=== PATIENT | female | born 1975 | race Caucasian/White ===

== ENCOUNTER 2021-02-01 14:40 | Emergency (ER) | payer SELFPAY ==
--- NOTE | 2021-02-01 15:29 | RAD REPORT ---
EXAM DESCRIPTION: CT - Head C Spine Cap Wo Con - 02/01/2021 3:08 pm CLINICAL HISTORY: Trauma, head and neck injury. Chest, abdomen and pelvis pain. PAIN COMPARISON: No comparisons TECHNIQUE: CT head without contrast. CT cervical spine without contrast with coronal and sagittal reformatted images. CT chest, abdomen and pelvis without contrast with coronal and sagittal reformatted images of the [facility] ne. All CT scans are performed using dose optimization technique as appropriate and may include automated exposure control or mA/KV adjustment according to patient size. FINDINGS: CT HEAD WITHOUT CONTRAST: No intracranial hemorrhage, hydrocephalus or extra-axial fluid collection. No areas of brain edema o r midline shift. Mild to moderate mucoperiosteal thickening of the left maxillary antrum. The paranasal sinuses and ma stoids otherwise clear. The calvarium is intact. Left frontal and left posterior scalp hematomas are seen. There is likely an inferior left orbital rim fracture. CT CERVICAL SPINE WITHOUT CONTRAST: No fracture or subluxation. Moderate mid and upper cervical degenerative changes. The prevertebral so ft tissues are normal in thickness. CT CHEST, ABDOMEN, PELVIS WITHOUT CONTRAST: NOTE: Lack of contrast is a significant limitation in the assessment of trauma related findings. Spec ifically, solid organ, vascular and bowel evaluation is significantly limited. The lungs are clear.No pneumothorax or pericardial/pleural fluid. No evidence of intra-abdominal visceral injury, free fluid or free air is seen within the above detai led limitations. Small air bubbles are present in the urinary bladder. No fractures. IMPRESSION: Scalp hematomas are noted without intracranial acute abnormality. Inferior left orbital rim fractures noted, favored to be old. Elsewhere, no acute abnormality discerned. Small air bubbles are present in the urinary bladder. This could indicate infection or recent instrum entation.
[2021-02-01 15:35] LABS: Absolute Lymphocytes (CBC) 3.1 K/uL (0.7-4.9); Basophils % 1.3 % (0-1.3); Hematocrit 42.1 % (36.0-45.0); Lymphocytes % 37.7 % (15.3-44.8); MPV 7.9 fL (7.6-11.3); RBC Red Blood Cell Count 4.09 M/uL (3.86-4.86)
[2021-02-01] MEDS ORDERED: MORPHINE 4 MG/ML SYR ONE ×2 (15:57→18:19)
[2021-02-01] MEDS ORDERED: ONDANSETRON 4 MG/2 ML VIAL ONE ×2 (15:57→18:19)
[2021-02-01 15:58] LABS: BUN Blood Urea Nitrogen 10 mg/dL (7-18); Bicarbonate 24 mmol/L (21-32); Glucose Level 100 mg/dL (74-106); Potassium 3.8 mmol/L (3.5-5.1); Sodium Level 144 mmol/L (136-145)
--- NOTE | 2021-02-01 17:15 | EDPHYS ---
Physician Documentation [facility] Name: Wendi Bonilla Age: 45 yrs Sex: Female : 1975 Arrival Date: 02/01/2021 Time: 14:44 Bed 25 Private MD: ED Physician Walter Boogie HPI: 02/02 16:41 This 45 yrs old Female presents to ER via EMS with complaints of Fall Injury. kdr 16:41 Details of fall: The patient fell from a height, 12 foot fall to concrete. Denies LOC. kdr Onset: The symptoms/episode began/occurred acutely, just prior to arrival. Associated injuries: The patient sustained injury to the head, abrasion, contusion, hematoma, pain, swelling, tenderness, right wrist, decreased range of motion, deformity, ecchymosis, left lateral ankle, decreased range of motion, ecchymosis, hematoma, painful injury, swelling. Severity of symptoms: At their worst the symptoms were moderate, severe, in the emergency department the symptoms are unchanged. The patient has not experienced similar symptoms in the past. The patient has not recently seen a physician. Historical: - Allergies: 02/01 16:00 No Known Allergies; hb - Immunization history:: Adult Immunizations up to date. - Social history:: Smoking status: Patient denies any tobacco usage or history of. - Immunization history: Last tetanus immunization: < 5 years ago. ROS: 02/02 16:41 Constitutional: Negative for fever, chills, and weight loss, Eyes: Negative for injury, kdr pain, redness, and discharge, ENT: Negative for injury, pain, and discharge, Neck: Negative for injury, pain, and swelling, Cardiovascular: Negative for chest pain, palpitations, and edema, Respiratory: Negative for shortness of breath, cough, wheezing, and pleuritic chest pain, Abdomen/GI: Negative for abdominal pain, nausea, vomiting, diarrhea, and constipation, Back: Negative for injury and pain, : Negative for injury, bleeding, discharge, and swelling, Skin: Negative for injury, rash, and discoloration, Psych: Negative for depression, anxiety, suicide ideation, homicidal ideation, and hallucinations, Allergy/Immunology: Negative for hives, rash, and allergies, Endocrine: Negative for neck swelling, polydipsia, polyuria, polyphagia, and marked weight changes, Hematologic/Lymphatic: Negative for swollen nodes, abnormal bleeding, and unusual bruising. MS/extremity: Positive for decreased range of motion, deformity, pain, swelling, tenderness, warmth, of the right wrist, left lateral ankle and lateral aspect of left foot. Exam: 16:41 Constitutional: This is a well developed, well nourished patient who is awake, alert, kdr and in no acute distress. 16:41 ENT: Nares patent. No nasal discharge, no septal abnormalities noted. Tympanic membranes are normal and external auditory canals are clear. Oropharynx with no redness, swelling, or masses, exudates, or evidence of obstruction, uvula midline. Mucous membranes moist. Neck: Trachea midline, no thyromegaly or masses palpated, and no cervical lymphadenopathy. Supple, full range of motion without nuchal rigidity, or vertebral point tenderness. No Meningismus. Chest/axilla: Normal chest wall appearance and motion. Nontender with no deformity. No lesions are appreciated. Cardiovascular: Regular rate and rhythm with a normal S1 and S2. No gallops, murmurs, or rubs. Normal PMI, no JVD. No pulse deficits. Respiratory: Lungs have equal breath sounds bilaterally, clear to auscultation and percussion. No rales, rhonchi or wheezes noted. No increased work of breathing, no retractions or nasal flaring. Abdomen/GI: Soft, non-tender, with normal bowel sounds. No distension or tympany. No guarding or rebound. No evidence of tenderness throughout. Back: No spinal tenderness. No costovertebral tenderness. Full range of motion. Skin: Warm, dry with normal turgor. Normal color with no rashes, no lesions, and no evidence of cellulitis. MS/ Extremity: Pulses equal, no cyanosis. Neurovascular intact. Full, normal range of motion. Neuro: Awake and alert, GCS 15, oriented to person, place, time, and situation. Cranial nerves II-XII grossly intact. Motor strength 5/5 in all extremities. Sensory grossly intact. Cerebellar exam normal. Normal gait. Psych: Awake, alert, with orientation to person, place and time. Behavior, mood, and affect are within normal limits. 16:41 Head/face: Noted is abrasion(s), hematoma, a laceration(s), that is superficial, 4 cm(s), of the forehead. Vital Signs: 02/01 14:50 BP 141 / 102; Pulse 93; Resp 18; Temp 98.2; Pulse Ox 94% on R/A; Pain 10/10; hb 15:15 BP 116 / 94; Pulse 93; Resp 16; Pulse Ox 96% ; Pain 10/10; kg 15:30 BP 133 / 88; Pulse 96; Resp 18; Pulse Ox 94% ; Pain 10/10; kg 16:45 BP 161 / 104; Pulse 89; Resp 17; Pulse Ox 99% on R/A; hb 17:45 BP 140 / 103; Pulse 89; Resp 15; Pulse Ox 99% on R/A; Pain 8/10; hb Ramo Coma Score: 14:50 Eye Response: spontaneous(4). Verbal Response: oriented(5). Motor Response: obeys hb commands(6). Total: 15. Trauma Score (Adult): 14:50 Eye Response: spontaneous(1); Verbal Response: oriented(1); Motor Response: obeys hb commands(2); Systolic BP: > 89 mm Hg(4); Respiratory Rate: 10 to 29 per min(4); Ramo Score: 15; Trauma Score: 12 15:45 Eye Response: spontaneous(1); Verbal Response: oriented(1); Motor Response: obeys hb commands(2); Systolic BP: > 89 mm Hg(4); Respiratory Rate: 10 to 29 per min(4); Ramo Score: 15; Trauma Score: 12 16:45 Eye Response: spontaneous(1); Verbal Response: oriented(1); Motor Response: obeys hb commands(2); Systolic BP: > 89 mm Hg(4); Respiratory Rate: 10 to 29 per min(4); [place] Score: 15; Trauma Score: 12 17:45 Eye Response: spontaneous(1); Verbal Response: oriented(1); Motor Response: obeys hb commands(2); Systolic BP: > 89 mm Hg(4); Respiratory Rate: 10 to 29 per min(4); Ramo Score: 15; Trauma Score: 12 MDM: 17:14 Patient medically screened. kdr 02/02 16:41 Data reviewed: vital signs, nurses notes, lab test result(s), radiologic studies. kdr Counseling: I had a detailed discussion with the patient and/or guardian regarding: the historical points, exam findings, and any diagnostic results supporting the discharge/admit diagnosis, lab results, radiology results, the need for outpatient follow up. 02/01 15:01 Order name: Basic Metabolic Panel; Complete Time: 16:11 kdr 02/01 15:01 Order name: CBC with Diff; Complete Time: 16:11 kdr 02/01 15:01 Order name: CT Traumagram (Head C Spine CAP wo con); Complete Time: 16:11 [facility] 02/01 15:01 Order name: ETOH Level; Complete Time: 16:11 [facility] 02/01 18:02 Order name: XRAY Ankle LEFT 3 view 8 02/01 15:01 Order name: Labs collected and sent; Complete Time: 15:28 kdr 02/01 18:02 Order name: XRAY Wrist RIGHT 3 view 8 02/01 15:31 Order name: Labs - recollect needed: recollect ty\T\screen, reband pt; Complete Time: bd 15:45 02/01 18:26 Order name: Parker wrap-joint 8 02/01 18:26 Order name: [place] Forearm Splint [facility] Administered Medications: 02/01 15:44 Drug: Zofran (Ondansetron) 4 mg Route: IVP; Site: left antecubital; kg 16:12 Follow up: Response: No adverse reaction; Marked relief of symptoms; Pain is decreased kg 15:45 Drug: morphine 4 mg Route: IVP; Site: left antecubital; kg 16:12 Follow up: Response: No adverse reaction; Pain is decreased kg 17:15 Drug: Lidocaine-Epinephrine -1%: (1:100,000) 20 ml Volume: 20 ml; Route: Infiltration; hb 17:15 Drug: Marcaine (bupivacaine) (0.25 %) 10 ml Route: Infiltration; hb 18:07 Drug: morphine 4 mg Route: IVP; Site: left antecubital; hb 18:08 Drug: Zofran (Ondansetron) 4 mg Route: IVP; Site: left antecubital; hb Disposition: 02/01/21 18:35 Discharged to Home. Impression: Laceration Forehead, Nondisplaced right distal radius fracture, Sprain of ankle. - Condition is Stable. - Discharge Instructions: Ankle Sprain, Facial Laceration, Wrist Fracture Treated With Immobilization. - Prescriptions for Ibuprofen 800 mg Oral Tablet - take 1 tablet by ORAL route every 12 hours As needed take with food; 20 tablet. Tylenol- Codeine #3 300-30 mg Oral Tablet - take 2 tablets by ORAL route every 4-6 hours As needed; 20 tablet. - Medication Reconciliation Form, Thank You Letter, Antibiotic Education, Prescription Opioid Use form. - Follow up: Travis Aguero MD; When: 5 - 6 days; Reason: Wound Recheck, Recheck today's complaints, Continuance of care, Staple/Suture removal, Re-evaluation by your physician. Follow up: Clark Tillman MD; When: 5 - 6 days; Reason: Recheck today's complaints, Continuance of care, Re-evaluation by your physician. - Problem is new. - Symptoms have improved. Signatures: Dispatcher [employer] [facility] Uzma Nayak Kevin, MD MD [facility] Alex Son PA PA [id number] More Ramey RN RN Florence Rizo kg Corrections: (The following items were deleted from the chart) 15:51 15:02 TYPE AND SCREEN+BB.LAB.BRZ ordered. [facility] 18:08 17:14 02/01/2021 17:14 Discharged to Home. Impression: Weakness; Rectal Bleeding s/p kdr hemorrhoidectomy. Condition is Stable. Forms are Medication Reconciliation Form, Thank You Letter, Antibiotic Education, Prescription Opioid Use. Follow up: Private Physician; When: 2 - 3 days; Reason: If symptoms return, Further diagnostic work-up, Recheck today's complaints, Continuance of care, Re-evaluation by your physician. Problem is an ongoing problem. Symptoms have improved. kdr 19:00 18:35 02/01/2021 18:35 Discharged to Home. Impression: Laceration Forehead; hb Nondisplaced right distal radius fracture; Sprain of ankle. Condition is Stable. Prescriptions for Ativan 0.5 mg Oral Tablet - take 1 tablet by ORAL route every 8 hours As needed for sleep If 50 mg of benadryl does not get you to sleep then use this medication only once per night.; 6 tablet, Benadryl 25 mg Oral Capsule - take 2 capsule by ORAL route At bedtime As needed; 16 tablet. and Forms are Medication Reconciliation Form, Thank You Letter, Antibiotic Education, Prescription Opioid Use. Follow up: Travis Aguero; When: 5 - 6 days; Reason: Wound Recheck, Recheck today's complaints, Continuance of care, Staple/Suture removal, Re-evaluation by your physician. Follow up: Clark Tillman; When: 5 - 6 days; Reason: Recheck today's complaints, Continuance of care, Re-evaluation by your physician. Problem is new. Symptoms have improved. jr8
--- NOTE | 2021-02-01 17:15 | ER ---
Nurse's Notes [facility] Name: Wendi Bonilla Age: 45 yrs Sex: Female : 1975 Arrival Date: 02/01/2021 Time: 14:44 Bed 25 Private MD: Diagnosis: Laceration Forehead;Nondisplaced right distal radius fracture;Sprain of ankle Presentation: 02/01 14:49 Chief complaint: EMS states: Fell backwards off 12 foot deck and landed on concrete. hb Laceration to forehead, c/o right wrist and low back pain. Negative LOC. Care prior to arrival: Bleeding of injury controlled. Injury cleansed. Cervical collar in place. Placed on backboard. Mechanism of Injury: Fall 12 feet. 14:49 Acuity: THERON 2 hb 14:49 Method Of Arrival: EMS: [facility] 14:49 Trauma event details: Injury occurred in the [facility], Injury occurred: at home. Injury occurred: February 01, 2021. 15:02 Coronavirus screen: At this time, the client does not indicate any symptoms associated hb with coronavirus-19. Ebola Screen: No symptoms or risks identified at this time. Initial Sepsis Screen: Does the patient meet any 2 criteria? No. Patient's initial sepsis screen is negative. Does the patient have a suspected source of infection? No. Patient's initial sepsis screen is negative. Risk Assessment: Do you want to hurt yourself or someone else? Patient reports no desire to harm self or others. Onset of symptoms was February 01, 2021. Trauma Activation: Alert Physician: ED Physician; Name: Dr. Boogie; Notified At: 14:49; Arrived At: 14:49 Physician: General Surgeon; Name: ; Notified At: 14:49; Arrived At: Physician: Radiology; Name: ; Notified At: 14:49; Arrived At: Physician: Respiratory; Name: ; Notified At: 14:49; Arrived At: Physician: Lab; Name: ; Notified At: 14:49; Arrived At: Historical: - Allergies: 16:00 No Known Allergies; hb - Immunization history:: Adult Immunizations up to date. - Social history:: Smoking status: Patient denies any tobacco usage or history of. - Immunization history: Last tetanus immunization: < 5 years ago. Screenin:50 Abuse screen: Denies threats or abuse. Denies injuries from another. Tuberculosis hb screening: No symptoms or risk factors identified. 15:00 Nutritional screening: No deficits noted. Fall Risk Total [place] Fall Scale indicates hb Low Risk Score (25-44 pts). Fall prevention measures have been instituted. Side Rails Up X 2 Frequent Obs/Assesments occuring Family Present and informed to notify staff if they need to leave bedside As available Patient and Family Educated on Fall Prevention Program and strategies. Primary Survey: 14:50 NO uncontrolled hemorrhage observed. A: Airway: patent, No supplemental oxygen in use hb on arrival. Breathing/Chest: Respiratory pattern: regular, Respiratory effort: spontaneous, unlabored, Breath sounds: clear, Chest inspection: symmetrical rise and fall of the chest. Circulation: Pulses: palpable . Skin color: pink, Skin temperature: warm, dry. Disability Alert. Exposure/Environment: There is no evidence of uncontrolled external bleeding. Obvious injury(ies) are noted at this time: laceration to forehead, dressing in place. 15:45 Reassessment Airway Oxygen No O2 Breathing/Chest Respiratory pattern Regular hb Respiratory effort Spontaneous Unlabored Chest inspection Symmetrical Circulation Color [place] Temperature Warm Dry Disability Alert. 16:45 Reassessment Airway Oxygen No O2 Breathing/Chest Respiratory pattern Regular hb Respiratory effort Spontaneous Unlabored Chest inspection Symmetrical Circulation Color [place] Temperature Warm Dry Disability Alert. 17:45 Reassessment Airway Oxygen No O2 Breathing/Chest Respiratory pattern Regular hb Respiratory effort Spontaneous Unlabored Circulation Color [place] Temperature Warm Dry Disability Alert. Secondary Survey: 14:50 HEENT: Head Other laceration to forehead, bleeding controlled, dressing replaced with hb 4x4s and Kerlix. Gastrointestinal: No deficits noted. : No deficits noted. No signs and/or symptoms were reported regarding the genitourinary system. Musculoskeletal: Reports left low back pain, right wrist pain. Assessment: 14:55 Reassessment: Pt to CT via stretcher, remains on backboard per Dr. Boogie. hb 15:20 General: Appears in no apparent distress. uncomfortable, Behavior is calm, cooperative. hb Pain: Pain currently is 10 out of 10 on a pain scale. Neuro: Level of Consciousness is awake, alert, obeys commands, Oriented to person, place, time, situation. Cardiovascular: Capillary refill < 3 seconds Patient's skin is warm and dry. Rhythm is regular. Respiratory: Airway is patent Respiratory effort is even, unlabored, Respiratory pattern is regular, symmetrical. GI: No deficits noted. No signs and/or symptoms were reported involving the gastrointestinal system. : No deficits noted. No signs and/or symptoms were reported regarding the genitourinary system. EENT: No deficits noted. No signs and/or symptoms were reported regarding the EENT system. Derm: Skin is pink, warm \T\ dry. Musculoskeletal: Reports left low back pain, right wrist pain. Injury Description: forehead laceration, dressing in place. 15:45 Reassessment: Patient appears in no apparent distress at this time. Patient and/or hb family updated on plan of care and expected duration. Pain level reassessed. Patient is alert, oriented x 3, equal unlabored respirations, skin warm/dry/pink. 16:45 Reassessment: Patient appears in no apparent distress at this time. Patient and/or hb family updated on plan of care and expected duration. Pain level reassessed. Patient is alert, oriented x 3, equal unlabored respirations, skin warm/dry/pink. 17:14 Reassessment: Dr. Boogie at bedside for laceration repair. 17:45 Reassessment: Patient appears in no apparent distress at this time. Patient and/or hb family updated on plan of care and expected duration. Pain level reassessed. Patient is alert, oriented x 3, equal unlabored respirations, skin warm/dry/pink. Vital Signs: 14:50 BP 141 / 102; Pulse 93; Resp 18; Temp 98.2; Pulse Ox 94% on R/A; Pain 10/10; hb 15:15 BP 116 / 94; Pulse 93; Resp 16; Pulse Ox 96% ; Pain 10/10; kg 15:30 BP 133 / 88; Pulse 96; Resp 18; Pulse Ox 94% ; Pain 10/10; kg 16:45 BP 161 / 104; Pulse 89; Resp 17; Pulse Ox 99% on R/A; hb 17:45 BP 140 / 103; Pulse 89; Resp 15; Pulse Ox 99% on R/A; Pain 8/10; hb [place] Coma Score: 14:50 Eye Response: spontaneous(4). Verbal Response: oriented(5). Motor Response: obeys hb commands(6). Total: 15. Trauma Score (Adult): 14:50 Eye Response: spontaneous(1); Verbal Response: oriented(1); Motor Response: obeys hb commands(2); Systolic BP: > 89 mm Hg(4); Respiratory Rate: 10 to 29 per min(4); [place] Score: 15; Trauma Score: 12 15:45 Eye Response: spontaneous(1); Verbal Response: oriented(1); Motor Response: obeys hb commands(2); Systolic BP: > 89 mm Hg(4); Respiratory Rate: 10 to 29 per min(4); Ramo Score: 15; Trauma Score: 12 16:45 Eye Response: spontaneous(1); Verbal Response: oriented(1); Motor Response: obeys hb commands(2); Systolic BP: > 89 mm Hg(4); Respiratory Rate: 10 to 29 per min(4); Ramo Score: 15; Trauma Score: 12 17:45 Eye Response: spontaneous(1); Verbal Response: oriented(1); Motor Response: obeys hb commands(2); Systolic BP: > 89 mm Hg(4); Respiratory Rate: 10 to 29 per min(4); [place] Score: 15; Trauma Score: 12 ED Course: 14:44 Patient arrived in ED. kg 14:50 Patient has correct armband on for positive identification. Bed in low position. Call hb light in reach. Side rails up X2. 14:50 Patient maintains SpO2 saturation greater than 95% on room air. Thermoregulation: warm hb blanket given to patient. 14:55 More Ramey, RN is Primary Nurse. hb 14:58 Triage completed. hb 15:00 Walter Boogie MD is Attending Physician. kdr 15:00 Arm band placed on. hb 15:08 CT Traumagram (Head C Spine CAP wo con) In Process Unspecified. EDMS 15:20 Inserted saline lock: 20 gauge in left antecubital area, using aseptic technique. kg 15:27 ETOH Level Sent. kg 15:28 Basic Metabolic Panel Sent. kg 15:28 CBC with Diff Sent. kg 18:25 XRAY Ankle LEFT 3 view In Process Unspecified. EDMS 18:25 XRAY Wrist RIGHT 3 view In Process Unspecified. EDMS 18:33 Travis Aguero MD is Referral Physician. jr8 18:33 Clark Tillman MD is Referral Physician. jr8 18:58 No provider procedures requiring assistance completed. IV discontinued, intact, hb bleeding controlled, No redness/swelling at site. Administered Medications: 15:44 Drug: Zofran (Ondansetron) 4 mg Route: IVP; Site: left antecubital; kg 16:12 Follow up: Response: No adverse reaction; Marked relief of symptoms; Pain is decreased kg 15:45 Drug: morphine 4 mg Route: IVP; Site: left antecubital; kg 16:12 Follow up: Response: No adverse reaction; Pain is decreased kg 17:15 Drug: Lidocaine-Epinephrine -1%: (1:100,000) 20 ml Volume: 20 ml; Route: Infiltration; hb 17:15 Drug: Marcaine (bupivacaine) (0.25 %) 10 ml Route: Infiltration; hb 18:07 Drug: morphine 4 mg Route: IVP; Site: left antecubital; hb 18:08 Drug: Zofran (Ondansetron) 4 mg Route: IVP; Site: left antecubital; hb Intake: 14:50 PO: 0ml; Total: 0ml. hb Outcome: 18:35 Discharge ordered by . jr8 18:58 Discharged to home via wheelchair, with family. hb 18:58 Condition: stable 18:58 Discharge instructions given to patient, family, Instructed on discharge instructions, follow up and referral plans. medication usage, wound care, Demonstrated understanding of instructions, follow-up care, medications, wound care, splint care, Prescriptions given X 2. 18:59 Patient's length of stay in the Emergency Department was greater than 2 hours. awaiting hb laceration repair, radiology results, and dispoPatient's length of stay extended due to 19:00 Patient left the ED. hb Signatures: Dispatcher [employer] EDMS Walter Boogie MD MD [facility] Alex Son PA PA jr8 More Ramey RN RN Florence Rizo kg Corrections: (The following items were deleted from the chart) 15:51 15:28 TYPE AND SCREEN+BB.LAB.BRZ drawn and sent. kg EDMS 18:16 17:14 Discharge ordered by . kdr ss
[2021-02-01] MEDS ORDERED: BUPIVACAINE 0.5% PF 10 ML VIAL ONE (17:17)
[2021-02-01] MEDS ORDERED: LIDOCAINE 1% W/EPI 1:100,000 MDV 20 ML VIAL ONE (17:18)
--- NOTE | 2021-02-01 18:36 | RAD REPORT ---
EXAM DESCRIPTION: RAD - Wrist Right 3 View - 02/01/2021 6:25 pm CLINICAL HISTORY: PAIN Pain COMPARISON: <Comparisons> FINDINGS: Nondisplaced linear fracture of the distal metaphysis radius seen. Moderate soft tissue s welling is seen. The lateral projection is oblique in somewhat inadequate for evaluation of the carp al alignment.
--- NOTE | 2021-02-01 18:37 | RAD REPORT ---
EXAM DESCRIPTION: RAD - Ankle Left 3 View - 02/01/2021 6:25 pm CLINICAL HISTORY: PAIN COMPARISON: No comparisons FINDINGS: Significant soft tissue swelling is seen adjacent to the lateral malleolus. Minimal medial malleolar avulsion fracture suspected. Small calcaneal spurs.
[2021-02-01 19:46] VITALS: TEMP 98.2
[2021-02-01 19:51] VITALS: O2SAT 99
[2021-02-01 19:53] VITALS: BP 140/103
== END 2021-02-01 19:00 | disposition home or self-care (01) ==
LOC: ER 14:40
PROC: 0JQ10ZZ Repair Face Subcutaneous Tissue and Fascia, Open Approach (ICD-10-PCS; principal; 2021-02-01)
PROC: 2W3CX1Z Immobilization of Right Lower Arm using Splint (ICD-10-PCS; 2021-02-01)
DX: S01.81XA Laceration without foreign body of other part of head, initial encounter (principal); S52.501A Unspecified fracture of the lower end of right radius, initial encounter for closed fracture; S93.401A Sprain of unspecified ligament of right ankle, initial encounter; W17.89XA Other fall from one level to another, initial encounter; Y92.008 Other place in unspecified non-institutional (private) residence as the place of occurrence of the external cause
CPT/HCPCS: 36415; 70450; 71250; 72125; 80048; 80320; 85025; 96374; 96375; 99284; G0390; J2405

== ENCOUNTER 2021-02-23 09:46 | Day surgery (SDC) | payer OTHER ==
--- NOTE | 2021-02-22 10:10 | RAD REPORT ---
EXAM DESCRIPTION: RAD - Chest Pa And Lat (2 Views) - 02/22/2021 9:55 am CLINICAL HISTORY: preop COMPARISON: None TECHNIQUE: Frontal and lateral views of the chest were obtained. FINDINGS: The lungs are hyperexpanded with fibrotic lung change present. No failure, infiltrate or m ass lesion identifiable. Bilateral nipple shadows overlie the lower chest. Heart size is normal and central vasculature is within normal limits. No pleural effusion or pneumothorax seen. No acute wolf [place] finding noted. No aortic abnormality. IMPRESSION: Hyperexpanded lung doyle and prominent interstitial pattern support COPD diagnosis. Thi s can be correlated with clinical findings. No acute cardiopulmonary finding seen.
[2021-02-22 10:25] LABS: Urine Appearance CLEAR (Clear); Urine Bilirubin NEGATIVE (Negataive); Urine Blood NEGATIVE (Negative); Urine Color YELLOW (Yellow); Urine Glucose NEGATIVE (Negative); Urine Protein NEGATIVE (Negative); Urine Urobilinogen 0.2 mg/dL (0.2-1.0); Urine pH 5.5 (5.0-7.0)
[2021-02-22 10:35] LABS: Urine Microscopic Reflex NO UMIC
[2021-02-22 10:44] LABS: Absolute Lymphocytes (CBC) 3.3 K/uL (0.7-4.9); Basophils % 2.4 % (0-1.3); Hematocrit 39.4 % (36.0-45.0); Lymphocytes % 39.6 % (15.3-44.8); MPV 7.4 fL (7.6-11.3); RBC Red Blood Cell Count 3.95 M/uL (3.86-4.86)
[2021-02-23] MEDS ORDERED: Ringers Lactate 1,000 ML IV ONE (10:20)
[2021-02-23] MEDS ORDERED: BSS OPTHALMIC SOL 15 ML BOT OPTH ONE (12:13)
[2021-02-23] MEDS: CEFAZOLIN/SWI 1gm 1 GM/10 ML SYR ONE ×2 (12:16→12:35)
[2021-02-23] MEDS ORDERED: MIDAZOLAM HCL 2 MG/2 ML INJ ONE (12:34)
[2021-02-23] MEDS ORDERED: LIDOCAINE 1% W/EPI 1:100,000 MDV 20 ML VIAL ONE (12:41)
[2021-02-23] MEDS ORDERED: LIDOCAINE 1% MPF 5 ML VIAL ONE (12:44)
[2021-02-23] MEDS ORDERED: FENTANYL CITR 100 MCG/2 ML ONE (12:44)
[2021-02-23] MEDS ORDERED: propofoL 200 MG/20 ML VIAL IV ONE (12:44)
[2021-02-23] MEDS ORDERED: dexAMETHasone 10 MG/ML VIAL ONE (12:59)
[2021-02-23] MEDS ORDERED: KETOROLAC 30 MG/ML INJ ONE (13:04)
[2021-02-23] MEDS ORDERED: ONDANSETRON 4 MG/2 ML VIAL ONE (13:04)
[2021-02-23] MEDS ORDERED: Mastisol Adhesive Liq ONE (13:04)
[2021-02-23 13:57] VITALS: TEMP 97.6
[2021-02-23] MEDS ORDERED: CODEINE 30MG/APAP 300MG TAB ONE (14:51)
[2021-02-23 15:19] VITALS: BP 118/76; O2SAT 97
--- NOTE | 2021-02-23 20:58 | OP ---
Surgeon: Travis Aguero MD Preoperative Diagnosis: Open wound of the forehead. Postoperative Diagnosis: Open wound of the forehead. Procedure Performed: Excision of skin and subcutaneous tissue, layered closure, 3 cm. Anesthesia: General. Procedure In Detail: After satisfactory induction of general anesthesia, 1% lidocaine with epinephri ne was used to infiltrate the forehead. The patient was then prepped with Betadine scrub and paint. Dry sterile drapes were applied in the usual manner. A transverse ellipse was outlined excising the open wound and electrocautery was used for hemostasis. Flaps were undermined and advanced, closed w ith 4-0 PDS on deep dermis and 4-0 Prolene horizontal mattress on the skin. Tincture of benzoin, Wilian ri-Strips. The patient tolerated procedure well and returned to Recovery. TADEO/SVETA Voice ID: [id number] Report ID: [id number]
== END 2021-02-23 15:10 | disposition home or self-care (01) ==
LOC: OR 09:46
PROVIDERS: ATTEND Specialist
PROC: 0HX1XZZ Transfer Face Skin, External Approach (ICD-10-PCS; principal; 2021-02-23 12:00)
DX: S01.80XD Unspecified open wound of other part of head, subsequent encounter (principal); Z20.822 Contact with and (suspected) exposure to COVID-19
CPT/HCPCS: 93005; 85025; 36415; 81003; 71046; 14040; U0003; J2704; J2250; J3010; J1100; J0690; J7120; J2405

== ENCOUNTER 2022-01-23 12:43 | Emergency (ER) | payer OTHER ==
--- OUTSIDE RECORDS SUMMARY | 2022-01-23 12:46 | XMS REPORT | Continuity of Care Document ---
:1975 Author Organization [facility] t Address [address] [place] [address] [address] [place] [address] Care Team Providers Name Role Phone Pcp, Does Not Have A Primary Care Physician Pavel Bee MD Attending Clinician Walt Webster Attending Clinician Walt REDDY Attending Clinician Unavailable Pavel BEE Attending Clinician Unavailable Problems Condition Condition Condition Status Onset Resolution Last Treating Co mments Source Name Details Category Date Date Treatment Clinician Date No known No known Disease Unive rs active active ity of problems problems [facility] Allergies, Adverse Reactions, Alerts Allergy Allergy Status Severity Reaction(s) Onset Inactive Treating Comm ents Source Name Type Date Date Clinician Sulfa Propensi Active Unknown - Onset as Uni vers Dyne ty to See comments 02-08 a child - i ty of adverse 00:00: unknown [place] reaction 00 reaction Medica l s Branch SULFA DRUG Active Unknown-Cmnt Univ ers DYNE 05 ity of 00:00: [address] NO KNOWN Drug Active Univers ALLERGIE Class ity of S [facility] Social History Social Habit Start Date Stop Date Quantity Comments Source Exposure to Not sure University of SARS-CoV-2 [facility] (event) [place] Tobacco use and 2021-02-08 2021-02-08 Never used Universit y of exposure 00:00:00 00:00:00 [facility] Alcohol intake 2021-02-08 2021-02-08 Current drinker Unive rsity of 00:00:00 00:00:00 of alcohol [facility] (finding) Branch Sex [birth year] Universit y of 00:00:00 00:00:00 [facility] Branch Smoking Status Start Date Stop Date Source Never smoker [facility] Branch Medications Ordered Filled Start Stop Current Ordering Indication Dosage Frequency Signature Comments Components Source Medication Medication Date Date Medication? Clinician (SIG) Name Name traMADoL 50 2020- No acute pain 50mg Take 1 Univers mg tablet - 05-13 tablet by ity of 00:00: 04:59 mouth [place] 00 :00 every 6 Medical (six) Branch hours as needed for Pain (scale 4-6) for up to 7 days. Indication s: acute pain traMADoL 50 2020-2020- No 4647 50mg Take 1 Uni vers mg tablet 5- 05-13 tablet by ity of 00:00: 04:59 mouth [place] 00 :00 every 6 Medical (six) Branch hours as needed for Pain (scale 4-6) for up to 7 days. Indication s: acute pain docusate 2020- No [id number] 100mg Take 1 U nivers (COLACE) 5- 05-13 capsule by ity of 100 mg 00:00: 04:59 mouth [place] capsule 00 :00 daily for Medical 7 days. Branch docusate 2020- No Pain 100mg Take 1 Unive rs (COLACE) 5-05 05-13 capsule by ity of 100 mg 00:00: 04:59 mouth [place] capsule 00 :00 daily for Medical 7 days. Branch traMADoL 50 2020- No acute pain 50mg Take 1 Univers mg tablet 5- 05-13 tablet by ity of 00:00: 04:59 mouth [place] 00 :00 every 6 Medical (six) Branch hours as needed for Pain (scale 4-6) for up to 7 days. Indication s: acute pain docusate 2020- No Pain 100mg Take 1 Unive rs (COLACE) 5-05 05-13 capsule by ity of 100 mg 00:00: 04:59 mouth [place] capsule 00 :00 daily for Medical 7 days. Branch traMADoL 50 2020- No 4647 50mg Take 1 Uni vers mg tablet 5- 05-13 tablet by ity of 00:00: 04:59 mouth [place] 00 :00 every 6 Medical (six) Branch hours as needed for Pain (scale 4-6) for up to 7 days. Indication s: acute pain docusate 2020-0 2020- No [id number] 100mg Take 1 U nivers (COLACE) 02-08 capsule by ity of 100 mg 00:00: 04:59 mouth [place] capsule 00 :00 daily for Medical 7 days. Branch traMADoL 50 2020-0 2020- No 4647 50mg Take 1 Uni vers mg tablet 02-08 tablet by ity of 00:00: 04:59 mouth [place] 00 :00 every 6 Medical (six) Branch hours as needed for Pain (scale 4-6) for up to 7 days. Indication s: acute pain docusate 2020-0 2020- No [id number] 100mg Take 1 U nivers (COLACE) 02-08 capsule by ity of 100 mg 00:00: 04:59 mouth [place] capsule 00 :00 daily for Medical 7 days. Branch acetaminoph 2020-0 Yes TAKE 2 Univ ers en-codeine 4-28 TABLETS BY ity of 300-30 mg 00:00: MOUTH [place] tablet 00 EVERY 4 - Medical 6 HOURS Branch NEEDED FOR PAIN ibuprofen 2020-0 Yes TAKE 1 Univer s 800 mg 4-28 TABLET BY ity of tablet 00:00: MOUTH [place] 00 EVERY 12 Medical HOURS Branch NEEDED FOR PAIN acetaminoph 2020-0 Yes TAKE 2 Univ ers en-codeine 4-28 TABLETS BY ity of 300-30 mg 00:00: MOUTH [place] tablet 00 EVERY 4 - Medical 6 HOURS Branch NEEDED FOR PAIN ibuprofen 2020-0 Yes TAKE 1 Univer s 800 mg 4-28 TABLET BY ity of tablet 00:00: MOUTH [place] 00 EVERY 12 Medical HOURS Branch NEEDED FOR PAIN acetaminoph 2020-0 Yes TAKE 2 Univ ers en-codeine 4-28 TABLETS BY ity of 300-30 mg 00:00: MOUTH [place] tablet 00 EVERY 4 - Medical 6 HOURS Branch NEEDED FOR PAIN ibuprofen 2020-0 Yes TAKE 1 Univer s 800 mg 4-28 TABLET BY ity of tablet 00:00: MOUTH [place] 00 EVERY 12 Medical HOURS Branch NEEDED FOR PAIN acetaminoph 2020-0 Yes TAKE 2 Univ ers en-codeine 4-28 TABLETS BY ity of 300-30 mg 00:00: MOUTH [place] tablet 00 EVERY 4 - Medical 6 HOURS Branch NEEDED FOR PAIN ibuprofen 2020-0 Yes TAKE 1 Univer s 800 mg 4-28 TABLET BY ity of tablet 00:00: MOUTH [place] 00 EVERY 12 Medical HOURS Branch NEEDED FOR PAIN acetaminoph 2020-0 Yes TAKE 2 Univ ers en-codeine 4-28 TABLETS BY ity of 300-30 mg 00:00: MOUTH [place] tablet 00 EVERY 4 - Medical 6 HOURS Branch NEEDED FOR PAIN ibuprofen 2020-0 Yes TAKE 1 Univer s 800 mg 4-28 TABLET BY ity of tablet 00:00: MOUTH [place] 00 EVERY 12 Medical HOURS Branch NEEDED FOR PAIN acetaminoph 2020-0 Yes TAKE 2 Univ ers en-codeine 4-28 TABLETS BY ity of 300-30 mg 00:00: MOUTH [place] tablet 00 EVERY 4 - Medical 6 HOURS Branch NEEDED FOR PAIN ibuprofen 2020-0 Yes TAKE 1 Univer s 800 mg 4-28 TABLET BY ity of tablet 00:00: MOUTH [place] 00 EVERY 12 Medical HOURS Branch NEEDED FOR PAIN acetaminoph 2020-0 Yes TAKE 2 Univ ers en-codeine 4-28 TABLETS BY ity of 300-30 mg 00:00: MOUTH [place] tablet 00 EVERY 4 - Medical 6 HOURS Branch NEEDED FOR PAIN ibuprofen 2020-0 Yes TAKE 1 Univer s 800 mg 4-28 TABLET BY ity of tablet 00:00: MOUTH [place] 00 EVERY 12 Medical HOURS Branch NEEDED FOR PAIN acetaminoph 2020-0 Yes TAKE 2 Univ ers en-codeine 4-28 TABLETS BY ity of 300-30 mg 00:00: MOUTH [place] tablet 00 EVERY 4 - Medical 6 HOURS Branch NEEDED FOR PAIN ibuprofen 2020-0 Yes TAKE 1 Univer s 800 mg 4-28 TABLET BY ity of tablet 00:00: MOUTH [place] 00 EVERY 12 Medical HOURS Branch NEEDED FOR PAIN Vital Signs Vital Name Observation Time Observation Value Comments Source Systolic blood 2021-03-16 15:28:00 139 mm[Hg] Univer sity [facility] pressure Medical Branch Diastolic blood 2021-03-16 15:28:00 84 mm[Hg] Unive rsity [facility] pressure Medical Branch Heart rate 2021-03-16 15:28:00 87 /min [facility] [place] Body weight 2021-03-16 15:28:00 52.164 kg [facility] [place] [facility] BMI 2021-03-16 15:28:00 16.98 kg/m2 [facility] [place] [facility] Systolic blood 2021-02-08 18:14:00 106 mm[Hg] [facility] [place] pressure Medical Branch Diastolic blood 2021-02-08 18:14:00 71 mm[Hg] [facility] [place] pressure Medical Branch Heart rate 2021-02-08 18:14:00 87 /min [facility] [place] [facility] Body height 2021-02-08 18:14:00 175.3 cm [facility] [place] [facility] Body weight 2021-02-08 18:14:00 52.164 kg [facility] [place] [facility] BMI 2021-02-08 18:14:00 16.98 kg/m2 Universi ty of [facility] Branch Systolic blood 2021-02-08 18:14:00 106 mm[Hg] [facility] [place] pressure Medical Branch Diastolic blood 2021-02-08 18:14:00 71 mm[Hg] [facility] [place] pressure Medical Branch Heart rate 2021-02-08 18:14:00 87 /min [facility] [place] [facility] Body height 2021-02-08 18:14:00 175.3 cm [facility] [place] [facility] Body weight 2021-02-08 18:14:00 52.164 kg [facility] [place] [facility] BMI 2021-02-08 18:14:00 16.98 kg/m2 Universi ty of [facility] Branch Systolic blood 2021-02-08 18:14:00 106 mm[Hg] [facility] [place] pressure Medical Branch Diastolic blood 2021-02-08 18:14:00 71 mm[Hg] [facility] [place] pressure Medical Branch Heart rate 2021-02-08 18:14:00 87 /min [facility] [place] [facility] Body height 2021-02-08 18:14:00 175.3 cm [facility] [place] [facility] Body weight 2021-02-08 18:14:00 52.164 kg [facility] [place] [facility] BMI 2021-02-08 18:14:00 16.98 kg/m2 [facility] [place] [facility] Systolic blood 2021-02-08 18:14:00 106 mm[Hg] [facility] Diastolic blood 2021-02-08 18:14:00 71 mm[Hg] [facility] [place] Heart rate 2021-02-08 18:14:00 87 /min [facility] Body height 2021-02-08 18:14:00 175.3 cm [facility] Body weight 2021-02-08 18:14:00 52.164 kg [facility] BMI 2021-02-08 18:14:00 16.98 kg/m2 [facility] Procedures Procedure Date / Time Performed Performing Clinician Sourc e XR WRIST <3 VW RIGHT 2021-03-16 15:23:06 Clark Bee [facility] Plan of Care Planned Activity Planned Date Details Comments Source Future Scheduled 2023 Screening for University [facility] Test 00:00:00 malignant neoplasm Medical B ranch of colon (procedure) [code = 486399868] Future Scheduled 2023 Screening for University [facility] Test 00:00:00 malignant neoplasm Medical B ranch of colon (procedure) [code = 956096166] Future Scheduled 2021-06-07 [facility] ([facility] Ended) [code Medical Branch = INFLUENZA VACCINE (Season Ended)] Future Scheduled 2021-06-07 INFLUENZA VACCINE Univer sity [facility] Test 00:00:00 (Season Ended) [code Medical Branch = INFLUENZA VACCINE (Season Ended)] Future Scheduled 2013 Scre[facility] for [facility] [place] Test 00:00:00 malignant neoplasm Medical B ranch of breast (procedure) [code = 578407178] Future Scheduled 2013 Screening for [facility] [place] Test 00:00:00 malignant neoplasm Medical B ranch of breast (procedure) [code = 305579909] Future Scheduled 1994 Screening for [facility] [place] Test 00:00:00 malignant neoplasm Medical B ranch of cervix (procedure) [code = 766210167] Future Scheduled 1994 Screening for University [place] Test 00:00:00 malignant neoplasm Medical B ranch of cervix (procedure) [code = 808704804] Future Scheduled 1992 DTaP,Tdap,and Td [facility] [place] Test 00:00:00 Vaccines (1 - Tdap) Medical Branch [code = DTaP,Tdap,and Td Vaccines (1 - Tdap)] Future Scheduled 1992 DTaP,Tdap,and Td [facility] [place] Test 00:00:00 Vaccines (1 - Tdap) Medical Branch [code = DTaP,Tdap,and Td Vaccines (1 - Tdap)] Future Scheduled 1985 Depression screening [facility] [place] Test 00:00:00 (procedure) [code = Medical Branch [id number]] Future Scheduled 1985 Depression screening [facility] [place] Test 00:00:00 (procedure) [code = Medical Branch [id number]] Encounters Start End Encounter Admission Attending Care Care Encounter Source Date/Time Date/Time Type Type Clinicians Facility Department ID 2021-03-16 2021-03-16 [facility] [id number] Univers 10:23:05 23:59:00 Encounter [facility] [id number] ity of Surgical [id number] Dada as Specialti [id number] Ut dical es 8[address] [facility] 2021-03-16 2021-03-16 Office MendezRUST [id number] Univers 10:16:08 10:31:08 Visit [facility] [id number] it y of Surgical [id number] Dada as Specialti [id number] Ut dical es 198 [facility] 2021-03-16 2021-03-16 Outpatient Terra REDDY [facility] [id number] Univers 10:00:00 10:00:00 JOHN [id number] ity [facility] 2021-03-16 2021-03-16 Outpatient Terra REDDY [facility] [id number] Univers 10:00:00 10:00:00 JOHN blount [facility] 2021-03-15 2021-03-15 [id number] Univers 14:00:00 14:00:00 JOHN [id number] ity [facility] 2021-03-15 2021-03-15 Outpatient Terra REDDY [facility] [id number] Univers 14:00:00 14:00:00 JOHN [facility] 2021-02-08 2021-02-08 Hospital [facility] [id number] Univers 13:28:58 23:59:00 Encounter Clark Zhao [facility] [id number] ity of Surgical [id number] Dada as Specialti [id number] Ut dical es 809 [facility] 2021-02-08 2021-02-08 Office BeeRUST [id number] Univers 13:08:16 14:00:23 Visit Clark Zhao [facility] [id number] it y of Surgical [id number] Dada as Specialti [id number] Ut dical es 198 [facility] 2021-02-08 2021-02-08 [facility] [id number] Univers 13:30:00 13:30:00 CLARK [id number] [facility] 2021-02-08 2021-02-08 [facility] [id number] Univers 13:30:00 13:30:00 [facility] 2021-02-06 2021-02-06 [facility] [id number] Univers 15:15:00 15:15:00 CLARK [id number] [facility] 2021-02-06 2021-02-06 [facility] [id number] Univers 15:15:00 15:15:00 [facility] Results Test Description Test Time Test Comments Results Result Sourc e Comments XR WRIST <3 VW 2021-03-16 [facility] RIGHT 15:54:35 fracture of the [place] Med ical distal radius in Branch good alignment there is no volar or dorsal angulation she has signs of callus formation x-ray taken in cast
[2022-01-23] MEDS ORDERED: NA CHLORIDE 0.9% 1,000 ML ONE ×2 (14:55→16:24)
[2022-01-23] MEDS ORDERED: ONDANSETRON 4 MG/2 ML VIAL ONE ×2 (14:55→20:08)
[2022-01-23] MEDS ORDERED: MORPHINE 2 MG/ML SYR ONE ×2 (14:55→16:19)
[2022-01-23] MEDS ORDERED: FAMOTIDINE 20 MG/2 ML VIAL IV ONE (14:55)
[2022-01-23 15:04] LABS: Absolute Lymphocytes (CBC) 1.7 K/uL (0.7-4.9); Hematocrit 49.1 % (36.0-45.0); MPV 8.1 fL (7.6-11.3); RBC Red Blood Cell Count 5.07 M/uL (3.86-4.86)
[2022-01-23 15:24] LABS: Albumin 4.7 g/dL (3.4-5.0); Bilirubin Direct 0.3 mg/dL (0-0.2); Bilirubin Total 1.2 mg/dL (0.2-1.0); Magnesium 2.3 mg/dL (1.8-2.4); Potassium 3.4 mmol/L (3.5-5.1); Protein, Total 8.9 g/dL (6.4-8.2); Troponin High Sensitivity 7.6 pg/mL (<58.9)
--- NOTE | 2022-01-23 15:55 | RAD REPORT ---
EXAM DESCRIPTION: RAD - Chest Single View - 01/23/2022 3:40 pm CLINICAL HISTORY: CHEST PAIN COMPARISON: Two view chest 02/22/2021 TECHNIQUE: AP portable chest image was obtained 01/23/2022 3:40 pm . FINDINGS: Hyperexpanded and fibrotic lung doyle noted. Interstitial pattern is similar to compariso n. No acute infiltrate is identifiable. Failure and volume overload findings are not seen. Heart and vasculature are normal. No measurable pleural effusion and no pneumothorax. No acute bony abnormality seen. No acute aortic findings suspected. IMPRESSION: COPD findings similar to February 2021. No acute findings seen.
[2022-01-23] MEDS ORDERED: PROMETHAZINE INJ 25 MG/ML AMP ONE (16:20)
--- NOTE | 2022-01-23 17:15 | RAD REPORT ---
EXAM DESCRIPTION: CT - Abdomen Pelvis W Contrast - 01/23/2022 4:45 pm CLINICAL HISTORY: Abdominal pain, acute, nonlocalized COMPARISON: Chest Pa And Lat (2 Views) dated 02/22/2021 TECHNIQUE: Biphasic, helical CT imaging of the abdomen and pelvis was performed following 100 ml non -ionic IV contrast. No oral contrast administered. All CT scans are performed using dose optimization technique as appropriate and may include automated exposure control or mA/KV adjustment according to patient size. FINDINGS: No suspicious findings in the lung bases. Mild diffuse fatty infiltration present in the liver with spared parenchyma at gallbladder fossa. No focal liver lesion. No spleen or pancreatic abnormality identified. Gallbladder and biliary tree are also without suspicious finding. Symmetric renal function is seen with no hydronephrosis or suspicious renal mass. No pyelonephritis o r acute parenchymal process. No bladder abnormalities. No adrenal abnormalities. No dilated bowel loops or bowel wall thickening. No appendicitis or other acute GI finding. No free a ir, free fluid or inflammatory stranding. No hernia, mass or bulky lymphadenopathy. Uterus and ovari es show no suspicious findings. Wedging of the L1 body is present with approximately 20% loss in height. Posterior wall height is pre served. No acute fracture line seen. No paraspinal component. This is unchanged from the February [address] [facility] [address] examination. IMPRESSION: Contrast enhanced CT abdomen and pelvis showing no acute or emergent finding. Fatty infiltration of the liver.
[2022-01-23 17:58] LABS: Urine Blood Negative (Negative); Urine Glucose Negative (Negative); Urine Protein Trace (Negative); Urine pH 6.5 (5.0-7.0)
[2022-01-23] MEDS ORDERED: POTASSIUM 25 MEQ EFFERV TAB ONE (18:16)
--- NOTE | 2022-01-23 19:53 | EDPHYS ---
Physician Documentation [facility] Name: Wendi Bonilla Age: 46 yrs Sex: Female : 1975 Arrival Date: 01/23/2022 Time: 13:02 Bed 18 Private MD: ED Physician Luann Carney HPI: 01/23 15:00 This 46 yrs old Female presents to ER via Ambulatory with complaints of Vomiting. cp 15:00 The patient presents to the emergency department with nausea, with "dry heaves", cp vomiting, that is intermittent, abdominal pain. 15:00 Onset: The symptoms/episode began/occurred 4 day(s) ago. Possible causes: unknown. cp Associated signs and symptoms: Pertinent positives: anorexia, Pertinent negatives: constipation, diarrhea, fever, GI bleeding. Severity of symptoms: in the emergency department the symptoms are unchanged despite home interventions. Historical: - Allergies: 14:31 Sulfa (Sulfonamide Antibiotics); iw - Home Meds: 14:31 None [Active]; iw - PMHx: 14:31 None; iw - Immunization history:: Adult Immunizations up to date. - Social history:: Smoking status: Patient reports the use of cigarette tobacco products, smokes one-half pack cigarettes per day. ROS: 15:05 Constitutional: Negative for body aches, chills, fever, poor PO intake. cp 15:05 Eyes: Negative for injury, pain, redness, and discharge. cp 15:05 Cardiovascular: Negative for chest pain, edema, palpitations. 15:05 Respiratory: Negative for cough, shortness of breath, wheezing. 15:05 Abdomen/GI: Positive for abdominal pain, nausea and vomiting, anorexia, Negative for diarrhea, constipation, hematemesis. 15:05 Back: Negative for pain at rest, pain with movement. 15:05 : Negative for urinary symptoms. 15:05 Neuro: Negative for altered mental status, dizziness, headache, weakness. 15:05 All other systems are negative. Exam: 15:10 Constitutional: The patient appears in no acute distress, alert, awake, cp non-diaphoretic, non-toxic, well developed, well nourished. 15:10 Head/Face: Normocephalic, atraumatic. cp 15:10 Eyes: Periorbital structures: appear normal, Conjunctiva: normal, no exudate, no injection, Sclera: no appreciated abnormality, Lids and lashes: appear normal, bilaterally. 15:10 ENT: External ear(s): are unremarkable, Nose: is normal, Mouth: Lips: moist, Oral mucosa: pink and intact, moist, Posterior pharynx: Airway: no evidence of obstruction, patent. 15:10 Chest/axilla: Inspection: normal, Palpation: is normal, no crepitus, no tenderness. 15:10 Cardiovascular: Rate: normal, Rhythm: regular. 15:10 Respiratory: the patient does not display signs of respiratory distress, Respirations: normal, no use of accessory muscles, no retractions, labored breathing, is not present, Breath sounds: are clear throughout, no decreased breath sounds, no stridor, no wheezing. 15:10 Abdomen/GI: Inspection: abdomen appears normal, Bowel sounds: active, all quadrants, Palpation: soft, in all quadrants, mild abdominal tenderness, in the right upper quadrant and left upper quadrant. 15:10 Back: CVA tenderness, is absent. 15:10 Neuro: Orientation: to person, place \\T\\ time. Mentation: is normal. Vital Signs: 14:30 BP 150 / 109; Pulse 98; Resp 16; Temp 97.7; Pulse Ox 97% on R/A; iw 16:15 BP 158 / 84; Pulse 55; Resp 15; Pulse Ox 99% on R/A; vg1 17:00 BP 139 / 93; Pulse 52; Resp 14; Pulse Ox 99% on R/A; vg1 18:00 BP 129 / 56; Pulse 85; Resp 18; Pulse Ox 94% on R/A; vg1 18:30 BP 135 / 65; Pulse 80; Resp 20; Pulse Ox 96% on R/A; vg1 20:15 BP 147 / 96; Pulse 51; Resp 17 S; Pulse Ox 99% ; Pain 0/10; ag7 MDM: 15:00 Differential diagnosis: gastritis, cholecystitis, pancreatitis, appendicitis, cp diverticulitis, viral gastroenteritis, gastroenteritis. 16:05 Patient medically screened. cp 19:52 Data reviewed: vital signs, nurses notes, lab test result(s), radiologic studies, plain cp films, ultrasound. 19:52 Test interpretation: by ED physician or midlevel provider: ECG, plain radiologic cp studies. Counseling: I had a detailed discussion with the patient and/or guardian regarding: the historical points, exam findings, and any diagnostic results supporting the discharge/admit diagnosis, lab results, radiology results, to return to the emergency department if symptoms worsen or persist or if there are any questions or concerns that arise at home. Response to treatment: the patient's symptoms have markedly improved after treatment, VSS. Nausea and pain markedly improved, vomiting resolved. Will discharge to home for continued monitoring. 01/23 14:29 Order name: Basic Metabolic Panel; Complete Time: 16:07 cp 01/23 16:07 Interpretation: Normal except: K 3.4; CL 97; GLUC 116; GFR 69; CA 10.5. cp 01/23 14:29 Order name: CBC with Diff; Complete Time: 16:07 cp 01/23 16:08 Interpretation: Normal except: RBC 5.07; HGB 16.9; HCT 49.1. cp 01/23 14:29 Order name: LFT's; Complete Time: 16:07 cp 01/23 14:29 Order name: Magnesium; Complete Time: 16:07 cp 01/23 14:29 Order name: Troponin HS; Complete Time: 16:07 cp 01/23 14:29 Order name: Lipase; Complete Time: 16:07 cp 01/23 14:29 Order name: XRAY Chest (1 view); Complete Time: 16:07 cp 01/23 16:18 Order name: CT Abd/Pelvis - IV Contrast Only; Complete Time: 17:17 cp 01/23 17:59 Order name: Urine Dipstick-Ancillary; Complete Time: 18:58 EDMS 01/23 18:01 Order name: Urine --Ancillary (enter results); Complete Time: 18:58 bd 01/23 14:29 Order name: EKG; Complete Time: 14:29 cp 01/23 14:29 Order name: Cardiac monitoring; Complete Time: 16:33 cp 01/23 14:29 Order name: EKG - Nurse/Tech; Complete Time: 16:33 cp 01/23 14:29 Order name: IV Saline Lock; Complete Time: 16:07 cp 01/23 14:29 Order name: Labs collected and sent; Complete Time: 16:07 cp 01/23 14:29 Order name: O2 Per Protocol; Complete Time: 16: cp 01/23 14:29 Order name: O2 Sat Monitoring; Complete Time: 16:07 cp 01/23 14:29 Order name: Urine Dipstick-Ancillary (obtain specimen); Complete Time: 17:53 cp 01/23 14:29 Order name: Urine Test (obtain specimen); Complete Time: 17:53 cp 01/23 17:40 Order name: PO challenge; Complete Time: 19:03 cp 01/23 18:59 Order name: EKG; Complete Time: 18:59 cp 01/23 18:59 Order name: EKG - Nurse/Tech; Complete Time: 19:29 cp Administered Medications: 14:57 Drug: Pepcid (famotidine) 20 mg Route: IVP; Site: left antecubital; iw 16:19 Follow up: Response: No adverse reaction vg1 14:57 Drug: morphine 2 mg Route: IVP; Site: left antecubital; iw 15:40 Follow up: Response: No adverse reaction; Marked relief of symptoms vg1 14:57 Drug: NS 0.9% 1000 ml Route: IV; Rate: 1 bolus; Site: left antecubital; iw 16:19 Follow up: IV Status: Completed infusion; IV Intake: 1000ml vg1 14:58 Drug: Zofran (Ondansetron) 4 mg Route: IVP; Site: left antecubital; iw 16:19 Follow up: Response: No adverse reaction vg1 16:20 Drug: NS 0.9% 1000 ml Route: IV; Rate: 1 bolus; Site: left antecubital; vg1 18:18 Follow up: IV Status: Completed infusion; IV Intake: 1000ml vg1 16:20 Drug: Phenergan (promethazine) 25 mg Route: IVP; Site: left antecubital; vg1 18:18 Follow up: Response: No adverse reaction; Marked relief of symptoms vg1 16:23 Drug: morphine 2 mg Route: IVP; Site: left antecubital; vg1 19:04 Follow up: Response: No adverse reaction vg1 18:18 Drug: Potassium Effervescent Tablet 25 mEq Route: PO; vg1 19:03 Follow up: Response: No adverse reaction vg1 20:23 Drug: GI Cocktail without - (Maalox Suspension 30 ml, Lidocaine Liquid 2 % 15 ag7 ml) Route: PO; 20:28 Follow up: Response: Medication administered at discharge. ag7 20:23 Drug: Zofran (Ondansetron) 4 mg Route: IVP; Site: left antecubital; ag7 20:27 Follow up: Response: Medication administered at discharge. ag7 Disposition Summary: 01/23/22 19:52 Discharge Ordered Location: Home cp Problem: new cp Symptoms: have improved cp Condition: Stable cp Diagnosis - Nausea with vomiting, unspecified cp - Abdominal pain, unspecified cp Followup: cp - With: Saad Hendricks MD - When: 1 - 2 days - Reason: Recheck today's complaints Discharge Instructions: - Discharge Summary Sheet cp - Abdominal Pain, Adult cp - Nausea and Vomiting, Adult cp Forms: - Medication Reconciliation Form cp - Thank You Letter cp - Antibiotic Education cp - Prescription Opioid Use cp Prescriptions: - promethazine 6.25 mg/5 mL Oral Syrup - take 10 milliliters by ORAL route every 4 hours As needed; 200 milliliter; cp Refills: 0, Product Selection Permitted - Carafate 1 gram Oral Tablet - take 1 tablet by ORAL route 4 times per day take on an empty stomach, beginning cp on waking and last dose at bedtime, dissolve tablet in 8 oz warm water prior to ingestion; 100 tablet; Refills: 0, Product Selection Permitted Addendum: 01/25/2022 18:40 Co-signature as Attending Physician, Luann macedo a2 Signatures: Dispatcher [employer] aKur Alfonso, RN Jayson Her PA PA cp Luann Carney MD MD ma2 Ivette Holland RN RN vg1 Lizzy Escobar RN RN ag7
--- NOTE | 2022-01-23 19:53 | ER ---
Nurse's Notes [facility] Name: Wendi Bonilla Age: 46 yrs Sex: Female : 1975 Arrival Date: 01/23/2022 Time: 13:02 Bed 18 Private MD: Diagnosis: Nausea with vomiting, unspecified;Abdominal pain, unspecified Presentation: 01/23 14:29 Chief complaint: Patient states: n/v/d abd pain X 4 days. Coronavirus screen: At this iw time, the client does not indicate any symptoms associated with coronavirus-19. Ebola Screen: Patient negative for fever greater than or equal to 101.5 degrees Fahrenheit, and additional compatible Ebola Virus Disease symptoms Patient denies exposure to infectious person. Patient denies travel to an Ebola-affected area in the 21 days before illness onset. No symptoms or risks identified at this time. Initial Sepsis Screen: Does the patient meet any 2 criteria? No. Patient's initial sepsis screen is negative. Does the patient have a suspected source of infection? No. Patient's initial sepsis screen is negative. Risk Assessment: Do you want to hurt yourself or someone else? Patient reports no desire to harm self or others. Onset of symptoms was January 19, 2022. 14:29 Method Of Arrival: Ambulatory iw 14:29 Acuity: THERON 3 iw Historical: - Allergies: 14:31 Sulfa (Sulfonamide Antibiotics); iw - Home Meds: 14:31 None [Active]; iw - PMHx: 14:31 None; iw - Immunization history:: Adult Immunizations up to date. - Social history:: Smoking status: Patient reports the use of cigarette tobacco products, smokes one-half pack cigarettes per day. Screenin:36 Abuse screen: Denies threats or abuse. Nutritional screening: No deficits noted. vg1 Tuberculosis screening: No symptoms or risk factors identified. Fall Risk No fall in past 12 months (0 pts). No secondary diagnosis (0 pts). IV access (20 points). Ambulatory Aid- None/Bed Rest/Nurse Assist (0 pts). Gait- Normal/Bed Rest/Wheelchair (0 pts) Mental Status- Oriented to own ability (0 pts). Total Cunningham Fall Scale indicates No Risk (0-24 pts). Assessment: 16:00 General: Appears in no apparent distress. uncomfortable, Behavior is calm, cooperative. vg1 Pain: Complains of pain in abdomen Pain currently is 7 out of 10 on a pain scale. Pain began SaturdayJanuary 19. Neuro: Level of Consciousness is awake, alert, obeys commands, Oriented to person, place, time, situation. Cardiovascular: Patient's skin is warm and dry. Respiratory: Airway is patent Respiratory effort is even, unlabored. GI: Abdomen is flat, Abdomen is tender to palpation in epigastric area Reports diarrhea, nausea, vomiting. : No signs and/or symptoms were reported regarding the genitourinary system. EENT: No signs and/or symptoms were reported regarding the EENT system. Derm: Skin is intact, is healthy with good turgor. Musculoskeletal: Circulation, motion, and sensation intact. 17:00 Reassessment: Patient appears in no apparent distress at this time. Patient and/or vg1 family updated on plan of care and expected duration. Pain level reassessed. Patient is alert, oriented x 3, equal unlabored respirations, skin warm/dry/pink. Patient states feeling better. 18:00 Reassessment: Patient appears in no apparent distress at this time. Patient and/or vg1 family updated on plan of care and expected duration. Pain level reassessed. Patient is alert, oriented x 3, equal unlabored respirations, skin warm/dry/pink. Patient denies pain at this time. 19:00 Reassessment: Patient and/or family updated on plan of care and expected duration. Pain ag7 level reassessed. Patient is alert, oriented x 3, equal unlabored respirations, skin warm/dry/pink. Patient states symptoms have improved. Vital Signs: 14:30 BP 150 / 109; Pulse 98; Resp 16; Temp 97.7; Pulse Ox 97% on R/A; iw 16:15 BP 158 / 84; Pulse 55; Resp 15; Pulse Ox 99% on R/A; vg1 17:00 BP 139 / 93; Pulse 52; Resp 14; Pulse Ox 99% on R/A; vg1 18:00 BP 129 / 56; Pulse 85; Resp 18; Pulse Ox 94% on R/A; vg1 18:30 BP 135 / 65; Pulse 80; Resp 20; Pulse Ox 96% on R/A; vg1 20:15 BP 147 / 96; Pulse 51; Resp 17 S; Pulse Ox 99% ; Pain 0/10; ag7 ED Course: 13:02 Patient arrived in ED. ds1 14:02 Jayson Larios PA is PHCP. cp 14:02 Luann Carney MD is Attending Physician. cp 14:30 Triage completed. iw 15:07 Initial lab(s) drawn, by me, sent to lab. Inserted saline lock: 20 gauge in left mh5 antecubital area, using aseptic technique. Blood collected. 15:08 Lipase Sent. mh5 15:08 Basic Metabolic Panel Sent. mh5 15:08 LFT's Sent. 5 15:08 Magnesium Sent. 5 15:08 Troponin HS Sent. mh5 15:42 XRAY Chest (1 view) In Process Unspecified. EDMS 16:06 Ivette Holland, RN is Primary Nurse. vg1 16:36 Patient has correct armband on for positive identification. Bed in low position. Call vg1 light in reach. Side rails up X2. Adult w/ patient. 16:36 Arm band placed on. vg1 16:46 CT Abd/Pelvis - IV Contrast Only In Process Unspecified. EDMS 17:14 Ivette Holland, RN is Primary Nurse. vg1 19:05 Report given to Lizzy DOMINGO. vg1 19:52 Saad Hendricks MD is Referral Physician. cp 20:25 No provider procedures requiring assistance completed. ag7 20:26 IV discontinued, intact, bleeding controlled, No redness/swelling at site. Pressure ag7 dressing applied. Administered Medications: 14:57 Drug: Pepcid (famotidine) 20 mg Route: IVP; Site: left antecubital; iw 16:19 Follow up: Response: No adverse reaction vg1 14:57 Drug: morphine 2 mg Route: IVP; Site: left antecubital; iw 15:40 Follow up: Response: No adverse reaction; Marked relief of symptoms vg1 14:57 Drug: NS 0.9% 1000 ml Route: IV; Rate: 1 bolus; Site: left antecubital; iw 16:19 Follow up: IV Status: Completed infusion; IV Intake: 1000ml vg1 14:58 Drug: Zofran (Ondansetron) 4 mg Route: IVP; Site: left antecubital; iw 16:19 Follow up: Response: No adverse reaction vg1 16:20 Drug: NS 0.9% 1000 ml Route: IV; Rate: 1 bolus; Site: left antecubital; vg1 18:18 Follow up: IV Status: Completed infusion; IV Intake: 1000ml vg1 16:20 Drug: Phenergan (promethazine) 25 mg Route: IVP; Site: left antecubital; vg1 18:18 Follow up: Response: No adverse reaction; Marked relief of symptoms vg1 16:23 Drug: morphine 2 mg Route: IVP; Site: left antecubital; vg1 19:04 Follow up: Response: No adverse reaction vg1 18:18 Drug: Potassium Effervescent Tablet 25 mEq Route: PO; vg1 19:03 Follow up: Response: No adverse reaction vg1 20:23 Drug: GI Cocktail without - (Maalox Suspension 30 ml, Lidocaine Liquid 2 % 15 ag7 ml) Route: PO; 20:28 Follow up: Response: Medication administered at discharge. ag7 20:23 Drug: Zofran (Ondansetron) 4 mg Route: IVP; Site: left antecubital; ag7 20:27 Follow up: Response: Medication administered at discharge. ag7 Intake: 16:19 IV: 1000ml; Total: 1000ml. vg1 18:18 IV: 1000ml; Total: 2000ml. vg1 Outcome: 19:52 Discharge ordered by MD. cp 20:26 Discharged to home ambulatory. ag7 20:26 Condition: stable 20:26 Discharge instructions given to patient, Instructed on discharge instructions, follow up and referral plans. Demonstrated understanding of instructions, follow-up care, medications, Prescriptions given X 2. 20:28 Patient left the ED. ag7 Signatures: Dispatcher [employer] [facility] Sheyla Breen ds1 Kaur Bhatti, RN RN Jayson Sawyer PA PA cp Martinez, Maria Ivette Ryan RN RN vg1 Lizzy Escobar RN RN ag7
[2022-01-23] MEDS ORDERED: MAGNES/ALUMIN/SIMET 30ML UCUP ONE (20:08)
[2022-01-23] MEDS ORDERED: LIDOCAINE VISCOUS 2% SOLN 15 ML UDC ONE (20:09)
[2022-01-23 23:43] VITALS: TEMP 97.7
[2022-01-23 23:51] VITALS: BP 147/96; O2SAT 99
--- NOTE | 2022-01-24 08:07 | EKG ---
Test Date: 2022-01-23 Test Time: 19:20:59 Side Boss: ROCHELLE MEASUREMENT RESULTS: Intervals: Rate: 42 DC: 142 QRSD: 84 QT: 548 QTc: 457 Merrill: P: 68 DC: 142 QRS: 64 T: 47 INTERPRETIVE STATEMENTS: Marked sinus bradycardia Possible Left atrial enlargement Possible Lateral infarct, age undetermined Abnormal ECG Compared to ECG 02/22/2021 08:32:54 Sinus rhythm no longer present Myocardial infarct finding still present Electronically Signed On 01-24-22 08:06:51 CDT by Jose Joy
--- NOTE | 2022-01-24 08:08 | EKG ---
Test Date: 2022-01-23 Test Time: 16:25:24 Boat Person: NAYAN MEASUREMENT RESULTS: Intervals: Rate: 55 CO: 138 QRSD: 86 QT: 514 QTc: 491 Channing: P: 85 CO: 138 QRS: 77 T: -1 INTERPRETIVE STATEMENTS: Sinus bradycardia Nonspecific ST and T wave abnormality Prolonged QT Abnormal ECG Compared to ECG 02/22/2021 08:32:54 ST (T wave) deviation now present Prolonged QT interval now present Sinus rhythm no longer present Myocardial infarct finding no longer present Electronically Signed On 01-24-22 08:06:57 CDT by Jose Joy
== END 2022-01-23 20:28 | disposition home or self-care (01) ==
LOC: ER 12:43
DX: R11.2 Nausea with vomiting, unspecified (principal); R10.10 Upper abdominal pain, unspecified; Z88.2 Allergy status to sulfonamides; Z72.0 Tobacco use
CPT/HCPCS: 93005 ×2; 85025; 80048; 36415; 83735; 81025; 80076; 81003; 84484; 83690; 74177; 71045; Q9967; J2550; J2270 ×2; J7030 ×2; J2405 ×2; 96361; 96374; 96375; 99284; J3490

== ENCOUNTER 2023-08-01 12:48 | Emergency (ER) | payer SELFPAY ==
--- OUTSIDE RECORDS SUMMARY | 2023-08-01 12:52 | XMS REPORT | Continuity of Care Document ---
:1975 Author Organization [facility] t Address [address] [facility] [address] [place] [address] Care Team Providers Name Role Phone Pcp, Patient Does Not Have A Primary Care Physician +[id number] Doctor Unassigned, [place] Attending Clinician Unavailable Clark Bee MD Attending Clinician John Webster Attending Clinician JOHN REDDY Attending Clinician Unavailable CLARK BEE Attending Clinician Unavailable Problems Condition Condition Condition Status Onset Resolution Last Treating Co mments Source Name Details Category Date Date Treatment Clinician Date No known No known Disease Unive rs active active ity of problems problems [facility] Allergies, Adverse Reactions, Alerts Allergy Allergy Status Severity Reaction(s) Onset Inactive Treating Comm ents Source Name Type Date Date Clinician Sulfa Propensi Active Unknown - Onset as Uni vers Dyne ty to See comments 02-08 a child - i ty of adverse 00:00: unknown [place] reaction 00 reaction Medica l s Branch SULFA DRUG Active Unknown-Cmnt Univ ers DYNE 02-08 ity of 00:00: [address] NO KNOWN Drug Active Univers ALLERGIE Class ity of S [facility] Social History Social Habit Start Date Stop Date Quantity Comments Source Exposure to Not sure University of SARS-CoV-2 [facility] (event) [place] Tobacco use and 2021-02-08 2021-02-08 Smokeless tobacco Un iversity of exposure 00:00:00 00:00:00 non-user [facility] Alcohol intake 2021-02-08 2021-02-08 Current drinker Unive rsity of 00:00:00 00:00:00 of alcohol [place] [facility] (finding) [facility] Sex Ass[birth year] At [birth year] Universit y of 00:00:00 00:00:00 [facility] Branch Smoking Status Start Date Stop Date Source Never smoked tobacco [facility] Medications Ordered Filled Start Stop Current Ordering Indication Dosage Frequency Signature Comments Components Source Medication Medication Date Date Medication? Clinician (SIG) Name Name traMADoL 50 2020- No 4647 50mg Take 1 Uni vers mg tablet 5 05-13 tablet by ity of 00:00: 04:59 mouth [place] 00 :00 every 6 Medical (six) Branch hours as needed for Pain (scale 4-6) for up to 7 days. Indication s: acute pain docusate 2020- No [id number] 100mg Take 1 U nivers (COLACE) 5- 05-13 capsule by ity of 100 mg 00:00: 04:59 mouth [place] capsule 00 :00 daily for Medical 7 days. Branch traMADoL 50 2020- No 4647 50mg Take 1 Uni vers mg tablet 5 05-13 tablet by ity of 00:00: 04:59 mouth [place] 00 :00 every 6 Medical (six) Branch hours as needed for Pain (scale 4-6) for up to 7 days. Indication s: acute pain docusate 2020- No [id number] 100mg Take 1 U nivers (COLACE) 5-05 05-13 capsule by ity of 100 mg 00:00: 04:59 mouth [place] capsule 00 :00 daily for Medical 7 days. Branch traMADoL 50 2020- No 4647 50mg Take 1 Uni vers mg tablet 5-05 05-13 tablet by ity of 00:00: 04:59 mouth [place] 00 :00 every 6 Medical (six) Branch hours as needed for Pain (scale 4-6) for up to 7 days. Indication s: acute pain docusate 2020- No [id number] 100mg Take 1 U nivers (COLACE) 5-05 05-13 capsule by ity of 100 mg 00:00: 04:59 mouth [place] capsule 00 :00 daily for Medical 7 days. Branch ibuprofen 2021-0 Yes TAKE 1 Univer s 800 mg 4-28 TABLET BY ity of tablet 00:00: MOUTH [place] 00 EVERY 12 Medical HOURS Branch NEEDED FOR PAIN acetaminoph 2021-0 Yes TAKE 2 Univ ers en-codeine 4-28 TABLETS BY ity of 300-30 mg 00:00: MOUTH [place] tablet 00 EVERY 4 - Medical 6 HOURS Branch NEEDED FOR PAIN ibuprofen 2021-0 Yes TAKE 1 Univer s 800 mg 4-28 TABLET BY ity of tablet 00:00: MOUTH [place] 00 EVERY 12 Medical HOURS Branch NEEDED FOR PAIN acetaminoph 2021-0 Yes TAKE 2 Univ ers en-codeine 4-28 TABLETS BY ity of 300-30 mg 00:00: MOUTH [place] tablet 00 EVERY 4 - Medical 6 HOURS Branch NEEDED FOR PAIN ibuprofen 2021-0 Yes TAKE 1 Univer s 800 mg 4-28 TABLET BY ity of tablet 00:00: MOUTH [place] 00 EVERY 12 Medical HOURS Branch NEEDED FOR PAIN acetaminoph 2021-0 Yes TAKE 2 Univ ers en-codeine 4-28 TABLETS BY ity of 300-30 mg 00:00: MOUTH [place] tablet 00 EVERY 4 - Medical 6 HOURS Branch NEEDED FOR PAIN ibuprofen 2021-0 Yes TAKE 1 Univer s 800 mg 4-28 TABLET BY ity of tablet 00:00: MOUTH [place] 00 EVERY 12 Medical HOURS Branch NEEDED FOR PAIN acetaminoph 2021-0 Yes TAKE 2 Univ ers en-codeine 4-28 TABLETS BY ity of 300-30 mg 00:00: MOUTH [place] tablet 00 EVERY 4 - Medical 6 HOURS Branch NEEDED FOR PAIN ibuprofen 2021-0 Yes TAKE 1 Univer s 800 mg 4-28 TABLET BY ity of tablet 00:00: MOUTH [place] 00 EVERY 12 Medical HOURS Branch NEEDED FOR PAIN acetaminoph 2021-0 Yes TAKE 2 Univ ers en-codeine 4-28 TABLETS BY ity of 300-30 mg 00:00: MOUTH [place] tablet 00 EVERY 4 - Medical 6 HOURS Branch NEEDED FOR PAIN ibuprofen 2021-0 Yes TAKE 1 Univer s 800 mg 4-28 TABLET BY ity of tablet 00:00: MOUTH [place] 00 EVERY 12 Medical HOURS Branch NEEDED FOR PAIN acetaminoph 2021-0 Yes TAKE 2 Univ ers en-codeine 4-28 TABLETS BY ity of 300-30 mg 00:00: MOUTH [place] tablet 00 EVERY 4 - Medical 6 HOURS Branch NEEDED FOR PAIN ibuprofen 2021-0 Yes TAKE 1 Univer s 800 mg 4-28 TABLET BY ity of tablet 00:00: MOUTH [place] 00 EVERY 12 Medical HOURS Branch NEEDED FOR PAIN acetaminoph Yes TAKE 2 Univ ers en-codeine 4-28 TABLETS BY ity of 300-30 mg 00:00: MOUTH [place] tablet 00 EVERY 4 - Medical 6 HOURS Branch NEEDED FOR PAIN Vital Signs Vital Name Observation Time Observation Value Comments Source Systolic blood 2021-03-16 15:28:00 139 mm[Hg] Univer sity [facility] Diastolic blood 2021-03-16 15:28:00 84 mm[facility]Hg[facility] 2021-03-16 15:28:00 87 [facility] 2021-03-16 15:28:00 52.164 kg [facility] BMI 2021-03-16 15:28:00 16.98 kg/m2 [facility] Systolic blood 2021-02-08 18:14:00 106 mm[Hg] Univer sity [facility] Diastolic blood 2021-02-08 18:14:00 71 mm[Hg] [facility] 2021-02-08 18:14:00 87 /min [facility] Body height 2021-02-08 18:14:00 175.3 cm [facility] Body weight 2021-02-08 18:14:00 52.164 kg [facility] BMI 2021-02-08 18:14:00 16.98 kg/m2 [facility] Procedures Procedure Date / Time Performing Clinician Source Performed AUTHORIZATION FOR 2022-10-03 06:01:00 Doctor Unassigned, No Univ ersity [facility] RELEASE OF PHI Name [facility] Branch XR WRIST <3 VW RIGHT 2021-03-16 15:23:06 Clark Bee [facility] Encounters Start End Encounter Admission Attending Care Care Encounter Source Date/Time Date/Time Type Type Clinicians Facility Department ID 2022-10-03 2022-10-03 Orders Doctor CEE [id number] Univers 00:00:00 00:00:00 Only Unassigned, RICHIE [id number] ity of [place] [facility] [id number] Dada as [phone] [address] 2021-03-16 2021-03-16 [facility] [id number] Univers 10:23:05 23:59:00 Encounter Clark Zhao [facility] [id number] ity of Surgical [id number] Dada as Specialti [id number] Tn dical es [id number] [facility] 2021-03-16 2021-03-16 Office [facility] [id number] Univers 10:16:08 10:31:08 Visit John Godoy [facility] [id number] it y of Surgical [id number] Dada as Specialti [phone] Tn dical es [address] [facility] 2021-03-16 2021-03-16 [id number] Univers 10:00:00 10:00:00 [facility] 2021-03-15 2021-03-15 [facility] [id number] Univers 14:00:00 14:00:00 [facility] 2021-02-08 2021-02-08 [facility] [id number] Univers 13:28:58 23:59:00 Encounter Clark Zhao [facility] [id number] ity of Surgical [id number] Dada as Specialti [id number] Tn dical es [id number] [facility] 2021-02-08 2021-02-08 Office [facility] [id number] Univers 13:08:16 14:00:23 Visit Clark Urena [id number] it y of Surgical [id number] Dada as Specialti [id number] Me dical es 198 [facility] 2021-02-08 2021-02-08 [facility] [id number] Univers 13:30:00 13:30:00 [facility] 2021-02-06 2021-02-06 Outpatient R [facility] [id number] [facility] 15:15:00 15:15:00 [facility] Results Test Description Test Time Test Comments Results Result Sour e Comments XR WRIST <3 VW 2021-03-16 [employer] [facility] RIGHT 15:54:35 fracture of the [place] [facility] ica distal radius in Branch good alignment there is no volar or dorsal angulation she has signs of callus formation x-ray taken in cast
[2023-08-01 13:39] LABS: Absolute Lymphocytes (CBC) 1.7 K/uL (0.7-4.9); Hematocrit 47.9 % (36.0-45.0); MCV 99.7 fL (80-100); MPV 7.5 fL (7.6-11.3); Platelets 207 thou/uL (152-406)
[2023-08-01] MEDS ORDERED: PROMETHAZINE INJ 25 MG/ML AMP ONE ×2 (13:43→19:43)
[2023-08-01] MEDS ORDERED: FAMOTIDINE 20 MG/2 ML VIAL IV ONE (13:43)
[2023-08-01] MEDS ORDERED: NA CHLORIDE 0.9% 1,000 ML ONE ×2 (13:43→15:08)
[2023-08-01 13:57] LABS: Specific Gravity > 1.030 (1.005-1.030); Urine Bacteria <20 /HPF (<20); Urine Bilirubin NEGATIVE (Negative); Urine Blood Negative (Negative); Urine Clarity Extremely Turbid (Clear); Urine Color Yellow (Yellow); Urine Glucose NEGATIVE (Negative); Urine Mucus 4+ /HPF (None Seen); Urine Protein 1+ (Negative); Urine Urobilinogen 1+ (Normal); Urine pH 5.5 (5.0-7.0)
[2023-08-01 14:05] LABS: Albumin 4.5 g/dL (3.4-5.0); Bilirubin Total 1.2 mg/dL (0.2-1.0); Potassium 3.1 mEq/L (3.5-5.1); Protein, Total 8.8 g/dL (6.4-8.2)
[2023-08-01 14:13] LABS: SARS-CoV-2 Antigen Rapid Res Negative (Negative)
[2023-08-01] MEDS ORDERED: KCL 20 MEQ/100 mL IVPB 100 ML IV ONE (14:57)
[2023-08-01] MEDS ORDERED: SUCRALFATE 1 GM TABLET ONE (15:46)
--- NOTE | 2023-08-01 15:47 | RAD REPORT ---
EXAM DESCRIPTION: US - Abdomen Exam Limited - 08/01/2023 3:25 pm CLINICAL HISTORY: Abdominal pain. COMPARISON: None. FINDINGS: The gallbladder wall is not thickened. A gallstone is not seen. The biliary tree is normal caliber. IMPRESSION: Unremarkable gallbladder ultrasound.
[2023-08-01] MEDS ORDERED: DICYCLOMINE HCL 10 MG CAP ONE (16:14)
--- NOTE | 2023-08-01 19:07 | ER ---
Nurse's Notes [facility] Name: Wendi Bonilla Age: 47 yrs Sex: Female : 1975 Arrival Date: 08/01/2023 Time: 12:48 Bed 16 Private MD: Diagnosis: Nausea with vomiting, unspecified;Dehydration;Hypokalemia Presentation: 08/01 12:59 Chief complaint: Patient states: N/V, abd pain for 4 days. No known fever. Mouth sores ll1 that area painful. Coronavirus screen: Vaccine status: Patient reports receiving the 2nd dose of the covid vaccine. Client denies travel out of the [place] in the last 14 days. cough unrelated to allergies, fatigue, nausea, vomiting. Client presents with at least one sign or symptom that may indicate coronavirus-19. Standard/surgical mask placed on the client. Ebola Screen: Patient denies travel to an Ebola-affected area in the 21 days before illness onset. Initial Sepsis Screen: Does the patient meet any 2 criteria? No. Patient's initial sepsis screen is negative. Does the patient have a suspected source of infection? Yes: Acute abdominal pain. Risk Assessment: Do you want to hurt yourself or someone else? Patient reports no desire to harm self or others. Onset of symptoms was July 28, 2023. 12:59 Method Of Arrival: Ambulatory ll1 12:59 Acuity: THERON 3 ll1 Historical: - Allergies: 13:01 Sulfa (Sulfonamide Antibiotics); ll1 - PMHx: 13:01 None; ll1 - PSHx: 13:01 ankle SX; staph infections surgeries to R ankle; ll1 - Immunization history:: Adult Immunizations up to date. - Social history:: Smoking status: Patient reports the use of cigarette tobacco products, smokes one pack cigarettes per day. Screenin:07 [facility] ED Fall Risk Assessment (Adult) Score/Fall Risk Level 0 - 2 = Low Risk. Abuse eh3 screen: Denies threats or abuse. Denies injuries from another. Nutritional screening: No deficits noted. Tuberculosis screening: No symptoms or risk factors identified. Assessment: 13:07 General: Appears in no apparent distress. uncomfortable, Behavior is cooperative, eh3 appropriate for age. Pain: Complains of pain in abdomen. Neuro: Level of Consciousness is awake, alert, obeys commands, Oriented to person, place, time, situation. Cardiovascular: Capillary refill < 3 seconds Patient's skin is warm and dry. Respiratory: Airway is patent Respiratory effort is even, unlabored, Respiratory pattern is regular, symmetrical. GI: Abdomen is round non-distended, Reports intolerance of fluids, intolerance of food, nausea, vomiting. EENT: Oral mucosa is moist. Lesions noted. Derm: Skin is pink, warm \T\ dry. Musculoskeletal: Circulation, motion, and sensation intact. 14:00 Reassessment: Patient appears in no apparent distress at this time. Patient and/or eh3 family updated on plan of care and expected duration. Pain level reassessed. Patient is alert, oriented x 3, equal unlabored respirations, skin warm/dry/pink. 15:00 Reassessment: Patient appears in no apparent distress at this time. Patient and/or eh3 family updated on plan of care and expected duration. Pain level reassessed. Patient is alert, oriented x 3, equal unlabored respirations, skin warm/dry/pink. 16:00 Reassessment: Patient appears in no apparent distress at this time. Patient and/or eh3 family updated on plan of care and expected duration. Pain level reassessed. Patient is alert, oriented x 3, equal unlabored respirations, skin warm/dry/pink. 17:00 Reassessment: Patient appears in no apparent distress at this time. Patient and/or eh3 family updated on plan of care and expected duration. Pain level reassessed. Patient is alert, oriented x 3, equal unlabored respirations, skin warm/dry/pink. 18:00 Reassessment: Patient appears in no apparent distress at this time. Patient and/or eh3 family updated on plan of care and expected duration. Pain level reassessed. Patient is alert, oriented x 3, equal unlabored respirations, skin warm/dry/pink. 19:44 Reassessment: Patient and/or family updated on plan of care and expected duration. Pain ha1 level reassessed. Patient is alert, oriented x 3, equal unlabored respirations, skin warm/dry/pink. Patient states feeling better. Patient states symptoms have improved. Vital Signs: 12:59 BP 174 / 109; Pulse 85; Resp 17; Temp 97.6; Pulse Ox 98% ; Weight 52.16 kg; Height 5 ll1 ft. 9 in. ; Pain 8/10; 14:00 BP 184 / 95; Pulse 47; Resp 18; Pulse Ox 99% on R/A; eh3 15:00 BP 165 / 100; Pulse 53; Resp 18; Pulse Ox 98% on R/A; eh3 16:00 BP 193 / 93; Pulse 46; Resp 15; Pulse Ox 99% on R/A; eh3 17:00 BP 161 / 105; Pulse 70; Resp 20; Pulse Ox 100% on R/A; eh3 18:00 BP 173 / 94; Pulse 46; Resp 18; Pulse Ox 99% on R/A; eh3 19:45 BP 165 / 90; Pulse 52; Resp 17 S; Pulse Ox 99% on R/A; ha1 12:59 Body Mass Index 16.98 (52.16 kg, 175.26 cm) ll1 12:59 Pain Scale: Adult ll1 ED Course: 12:52 Patient arrived in ED. mr 12:53 Kayley Cameron, HUBERT is PHCP. snw 12:53 Rebecca Wolfe MD is Attending Physician. snw 13:01 Triage completed. ll1 13:01 Arm band placed on. ll1 13:07 Keli Rojo, RN is Primary Nurse. eh3 13:07 Patient has correct armband on for positive identification. Bed in low position. Call eh3 light in reach. Side rails up X2. Adult w/ patient. Provided Education on: Use of call rosas. Pulse ox on. NIBP on. 13:30 SARS RAPID Sent. bc6 13:30 Flu Sent. bc6 13:30 CBC with Diff Sent. bc6 13:30 CMP Sent. bc6 13:30 Lipase Sent. bc6 13:31 Inserted saline lock: 20 gauge in left forearm, using aseptic technique. Blood bc6 collected. 15:27 US Abdomen Limited In Process Unspecified. EDMS 18:39 Diet: Patient given ice chips. Patient given water. Tolerated well. eh3 19:46 No provider procedures requiring assistance completed. IV discontinued, intact, ha1 bleeding controlled, No redness/swelling at site. Pressure dressing applied. Administered Medications: 13:35 Drug: NS 0.9% IV 1000 ml IV at 1 bolus Per protocol; 1000 mL bolus Route: IV; Rate: 1 eh3 bolus; Site: left forearm; 15:00 Follow up: IV Status: Completed infusion; IV Intake: 1000ml eh3 13:40 Drug: Famotidine IVP 20 mg IVP once; dilute with 10 mL 0.9% NaCl; give over 2 minutes eh3 Route: IVP; Site: left forearm; 14:37 Follow up: Response: No adverse reaction eh3 13:40 Drug: Promethazine IVP 12.5 mg IVP once Route: IVP; Site: left forearm; eh3 14:37 Follow up: Response: No adverse reaction eh3 15:00 Drug: Potassium Chloride IV 20 mEq IV at calculated rate once; administer over 1-2 eh3 hours Route: IV; Rate: calculated rate; Site: left antecubital; 18:55 Follow up: Response: No adverse reaction; IV Status: Completed infusion; IV Intake: eh3 100ml 16:00 Drug: Sucralfate PO 1 grams PO once Route: PO; eh3 18:06 Follow up: Response: No adverse reaction eh3 16:30 Drug: Dicyclomine PO 20 mg PO once Route: PO; eh3 18:06 Follow up: Response: No adverse reaction eh3 19:30 Drug: Promethazine IVP 12.5 mg IVP once Route: IVP; Site: left forearm; ha1 19:44 Follow up: Response: No adverse reaction ha1 19:33 Drug: Pantoprazole IVP 40 mg IVP once Route: IVP; Site: left forearm; ha1 19:44 Follow up: Response: No adverse reaction ha1 Medication: 19:47 VIS not applicable for this client. ha1 Intake: 15:00 IV: 1000ml; Total: 1000ml. eh3 18:55 IV: 100ml; Total: 1100ml. eh3 Outcome: 19:06 Discharge ordered by . yanelis 19:47 Discharged to home ambulatory, with family, [facility] 19:47 Condition: stable 19:47 Discharge instructions given to patient, family, Instructed on discharge instructions, follow up and referral plans. medication usage, Demonstrated understanding of instructions, follow-up care, medications, Prescriptions given X 1, 19:47 Patient left the ED. ha1 Signatures: Dispatcher [employer] EDMS Kayley Cameorn FNP-C INDUSTRIAL ENGINEERING TECHNOLOGIST-CsnNegrita Judd, Jerzy Bertrand mr Nargis Cuellar RN RN ll1 Keli Rojo RN RN eh3 Cristina Dunn RN RN ha1 Tamera Perez 6 Corrections: (The following items were deleted from the chart) 13:04 12:59 Chief complaint: Patient states: N/V, abd pain for 4 days. No known fever 1 1 18:05 15:57 Reassessment: Patient appears in no apparent distress at this time. Patient 3 and/or family updated on plan of care and expected duration. Pain level reassessed. Patient is alert, oriented x 3, equal unlabored respirations, skin warm/dry/pink. 3 18:05 15:56 BP 193 / 93; Pulse 46bpm; Resp 15bpm; Pulse Ox 99% RA; eh3 3
--- NOTE | 2023-08-01 19:07 | EDPHYS ---
Physician Documentation [facility] Name: Wedni Bonilla Age: 47 yrs Sex: Female : 1975 Arrival Date: 08/01/2023 Time: 12:48 Bed 16 Private MD: ED Physician Rebecca Wolfe HPI: 08/01 13:38 This 47 yrs old Female presents to ER via Ambulatory with complaints of Vomiting. snw 13:38 The patient presents to the emergency department with nausea, vomiting. Onset: The snw symptoms/episode began/occurred suddenly, 4 day(s) ago, and became worse and became persistent. Associated signs and symptoms: Pertinent positives: bodyaches. The patient has experienced a previous episode, many years ago. It is unknown whether or not the patient has recently seen a physician. Historical: - Allergies: 13:01 Sulfa (Sulfonamide Antibiotics); ll1 - PMHx: 13:01 None; ll1 - PSHx: 13:01 ankle SX; staph infections surgeries to R ankle; ll1 - Immunization history:: Adult Immunizations up to date. - Social history:: Smoking status: Patient reports the use of cigarette tobacco products, smokes one pack cigarettes per day. ROS: 13:38 Constitutional: Negative for fever, chills, and weight loss, Eyes: Negative for injury, snw pain, redness, and discharge, ENT: Negative for injury, pain, and discharge, Neck: Negative for injury, pain, and swelling, Cardiovascular: Negative for chest pain, palpitations, and edema, Respiratory: Negative for shortness of breath, cough, wheezing, and pleuritic chest pain, Back: Negative for injury and pain, : Negative for injury, bleeding, discharge, and swelling, MS/Extremity: Negative for injury and deformity, Skin: Negative for injury, rash, and discoloration, Neuro: Negative for headache, weakness, numbness, tingling, and seizure, Psych: Negative for depression, anxiety, suicide ideation, homicidal ideation, and hallucinations, 13:38 Abdomen/GI: Positive for nausea and vomiting, Negative for diarrhea, Exam: 13:36 Head/Face: Normocephalic, atraumatic. Eyes: Pupils equal round and reactive to light, snw extra-ocular motions intact. Lids and lashes normal. Conjunctiva and sclera are non-icteric and not injected. Cornea within normal limits. Periorbital areas with no swelling, redness, or edema. Neck: Trachea midline, no thyromegaly or masses palpated, and no cervical lymphadenopathy. Supple, full range of motion without nuchal rigidity, or vertebral point tenderness. No Meningismus. Chest/axilla: Normal chest wall appearance and motion. Nontender with no deformity. No lesions are appreciated. Cardiovascular: Regular rate and rhythm with a normal S1 and S2. No gallops, murmurs, or rubs. Normal PMI, no JVD. No pulse deficits. Respiratory: Lungs have equal breath sounds bilaterally, clear to auscultation and percussion. No rales, rhonchi or wheezes noted. No increased work of breathing, no retractions or nasal flaring. 13:36 Back: No spinal tenderness. No costovertebral tenderness. Full range of motion. MS/ Extremity: Pulses equal, no cyanosis. Neurovascular intact. Full, normal range of motion. Neuro: Awake and alert, GCS 15, oriented to person, place, time, and situation. Cranial nerves II-XII grossly intact. Motor strength 5/5 in all extremities. Sensory grossly intact. Cerebellar exam normal. Normal gait. 13:36 Constitutional: The patient appears alert, awake, frail, listless, 13:36 ENT: External ear(s): are unremarkable, Ear canal(s): are normal, TM's: are normal, Nose: is normal, Mouth: Oral mucosa: noted to have obvious stomatitis, noted to have ulceration(s), Posterior pharynx: erythema, that is mild, that is moderate, ulcerations, Voice: is normal, 13:36 Abdomen/GI: Inspection: scaffoid, 13:36 Skin: Appearance: normal except for affected area, Moisture: dry, Vital Signs: 12:59 BP 174 / 109; Pulse 85; Resp 17; Temp 97.6; Pulse Ox 98% ; Weight 52.16 kg; Height 5 ll1 ft. 9 in. ; Pain 8/10; 14:00 BP 184 / 95; Pulse 47; Resp 18; Pulse Ox 99% on R/A; eh3 15:00 BP 165 / 100; Pulse 53; Resp 18; Pulse Ox 98% on R/A; eh3 16:00 BP 193 / 93; Pulse 46; Resp 15; Pulse Ox 99% on R/A; eh3 17:00 BP 161 / 105; Pulse 70; Resp 20; Pulse Ox 100% on R/A; eh3 18:00 BP 173 / 94; Pulse 46; Resp 18; Pulse Ox 99% on R/A; eh3 19:45 BP 165 / 90; Pulse 52; Resp 17 S; Pulse Ox 99% on R/A; ha1 12:59 Body Mass Index 16.98 (52.16 kg, 175.26 cm) ll1 12:59 Pain Scale: Adult ll1 MDM: 13:09 Patient medically screened. snw 15:47 Differential diagnosis: Nonspecific abd pain, gastritis, cholecystitis, pancreatitis, snw appendicitis, diverticulitis, viral gastroenteritis. Data reviewed: vital signs, nurses notes. ED course: will get EKG to see if Haldol may be appropriate . 16:44 Refusal of service: The patient/guardian displays adequate decision making capability snw and despite a detailed discussion of alternatives, benefits, risks, and consequences refuses: CT Scan. 16:58 ED course: no further vomiting. continued nausea. snw 08/01 13:10 Order name: CBC with Diff; Complete Time: 14:15 snw 08/01 13:10 Order name: CMP; Complete Time: 14:15 snw 08/01 13:10 Order name: Lipase; Complete Time: 14:15 snw 08/01 13:10 Order name: Urinalysis w/ reflexes; Complete Time: 14:15 snw 08/01 13:10 Order name: Flu; Complete Time: 14:44 snw 08/01 13:10 Order name: SARS RAPID; Complete Time: 14:15 snw 08/01 14:16 Order name: US Abdomen Limited; Complete Time: 15:47 snw 08/01 15:47 Order name: EKG; Complete Time: 15:47 snw 08/01 13:10 Order name: IV Saline Lock; Complete Time: 13:30 snw 08/01 13:10 Order name: Labs collected and sent; Complete Time: 13:30 snw 08/01 15:47 Order name: Recheck Vital Signs; Complete Time: 15:57 snw 08/01 15:47 Order name: EKG - Nurse/Tech; Complete Time: 16:54 snw 08/01 18:26 Order name: PO challenge; Complete Time: 18:39 snw Administered Medications: 13:35 Drug: NS 0.9% IV 1000 ml IV at 1 bolus Per protocol; 1000 mL bolus Route: IV; Rate: 1 eh3 bolus; Site: left forearm; 15:00 Follow up: IV Status: Completed infusion; IV Intake: 1000ml eh3 13:40 Drug: Famotidine IVP 20 mg IVP once; dilute with 10 mL 0.9% NaCl; give over 2 minutes eh3 Route: IVP; Site: left forearm; 14:37 Follow up: Response: No adverse reaction eh3 13:40 Drug: Promethazine IVP 12.5 mg IVP once Route: IVP; Site: left forearm; eh3 14:37 Follow up: Response: No adverse reaction eh3 15:00 Drug: Potassium Chloride IV 20 mEq IV at calculated rate once; administer over 1-2 eh3 hours Route: IV; Rate: calculated rate; Site: left antecubital; 18:55 Follow up: Response: No adverse reaction; IV Status: Completed infusion; IV Intake: eh3 100ml 16:00 Drug: Sucralfate PO 1 grams PO once Route: PO; eh3 18:06 Follow up: Response: No adverse reaction eh3 16:30 Drug: Dicyclomine PO 20 mg PO once Route: PO; eh3 18:06 Follow up: Response: No adverse reaction eh3 19:30 Drug: Promethazine IVP 12.5 mg IVP once Route: IVP; Site: left forearm; ha1 19:44 Follow up: Response: No adverse reaction ha1 19:33 Drug: Pantoprazole IVP 40 mg IVP once Route: IVP; Site: left forearm; ha1 19:44 Follow up: Response: No adverse reaction ha1 Disposition Summary: 08/01/23 19:06 Discharge Ordered Notes: Location: Home snw Condition: Stable snw Diagnosis - Nausea with vomiting, unspecified snw - Dehydration snw - Hypokalemia snw Followup: snw - With: Emergency Department - When: As needed - Reason: Worsening of condition Followup: snw - With: Private Physician - When: 1 - 2 days - Reason: Recheck today's complaints, Continuance of care, Re-evaluation by your physician Discharge Instructions: - Discharge Summary Sheet snw - Dehydration, Adult snw - Potassium Content of Foods snw - Nausea and Vomiting, Adult, [id number] snw - Hypokalemia snw - Rehydration, Adult snw Forms: - Work release form snw - Medication Reconciliation Form snw - Thank You Letter snw - Antibiotic Education snw - Prescription Opioid Use snw - Patient Portal Instructions snw - Leadership Thank You Letter snw Prescriptions: - promethazine 25 mg Rectal suppository - insert 1 suppository RECTAL route every 6 hours As needed; 12 suppository; snw Refills: 0, Product Selection Permitted Signatures: Dispatcher [employer] EDMS Kayley Cameron, ACCELERATOR TECHNICIAN-C ACCELERATOR TECHNICIAN-Csnw Nargis Cuellar, RN RN ll1 Keli Rojo, RN RN eh3 Cristina Dunn, RN RN ha1 Corrections: (The following items were deleted from the chart) 17:03 16:27 Abdomen Pelvis W Con+CT.RAD.BRZ ordered. EDMS EDMS
[2023-08-01] MEDS ORDERED: PANTOPRAZOLE 40 MG INJ ONE (19:44)
[2023-08-01 20:37] VITALS: TEMP 97.6
[2023-08-01 20:46] VITALS: O2SAT 99
[2023-08-01 20:48] VITALS: BP 165/90
--- NOTE | 2023-08-02 15:45 | EKG ---
Test Date: 2023-08-01 Test Time: 17:22:38 Lab Intern: ELIEL MEASUREMENT RESULTS: Intervals: Rate: 45 OK: 140 QRSD: 82 QT: 510 QTc: 441 Adel: P: 75 OK: 140 QRS: 68 T: 74 INTERPRETIVE STATEMENTS: Sinus bradycardia Otherwise normal ECG Compared to ECG 01/23/2022 19:20:59 Myocardial infarct finding no longer present Electronically Signed On 08-02-23 15:42:34 CDT by Bijan Salgado
== END 2023-08-01 19:47 | disposition home or self-care (01) ==
LOC: ER 12:48
DX: R11.2 Nausea with vomiting, unspecified (principal); E86.0 Dehydration; E87.6 Hypokalemia; F17.210 Nicotine dependence, cigarettes, uncomplicated; Z88.2 Allergy status to sulfonamides; Z20.822 Contact with and (suspected) exposure to COVID-19
CPT/HCPCS: 36415; 76705; 80053; 81001; 83690; 85025; 87804; 87811; 93005; C9113; J2550; J3480; J7030

== ENCOUNTER 2023-08-29 14:23 | Emergency (ER) | payer OTHER ==
--- OUTSIDE RECORDS SUMMARY | 2023-08-29 14:25 | XMS REPORT | Continuity of Care Document ---
:1975 Author Organization [facility] t Address [address] [place] [address] Care Team Providers Name Role Phone Pcp, Patient Does Not Have A Primary Care Physician +[phone] Doctor Unassigned, [place] Attending Clinician Unavailable Clark Bee MD Attending Clinician John Webster Attending Clinician JOHN REDDY Attending Clinician Unavailable CLARK BEE Attending Clinician Unavailable Problems Condition Condition Condition Status Onset Resolution Last Treating Co mments Source Name Details Category Date Date Treatment Clinician Date No known No known Disease Unive rs active active ity of problems problems [facility] Allergies, Adverse Reactions, Alerts Allergy Allergy [...] Univ ers DYNE 02-08 ity of 00:00: [address] NO KNOWN Drug Active Univers ALLERGIE Class ity of S [facility] Social History Social Habit Start Date Stop Date Quantity Comments Source Exposure to Not sure University of SARS-CoV-2 [facility] (event) [place] Tobacco use and 2021-02-08 2021-02-08 Smokeless tobacco Un iversity of exposure 00:00:00 00:00:00 non-user [facility] Alcohol intake 2021-02-08 2021-02-08 Current drinker Unive rsity of 00:00:00 00:00:00 of alcohol [facility] Sex Assigned At [birth year] Universit y of 00:00:00 00:00:00 [facility] Smoking Status Start Date Stop Date Source Never smoked tobacco [facility] Medications Ordered Filled Start Stop Current Ordering [...] Indication s: acute pain docusate 2020- No [id number] 100mg Take 1 U nivers (COLACE) 5- [...] Indication s: acute pain docusate 2020- No [id number] 100mg Take 1 U nivers (COLACE) 5-05 [...] Indication s: acute pain docusate 2020- No [id number] 100mg Take 1 U nivers (COLACE) 5-05 [...] blood 2021-03-16 15:28:00 139 mm[Hg] Univer sity [facility] Diastolic blood 2021-03-16 15:28:00 84 [facility]Hg[facility] 2021-03-16 15:28:00 87 [facility] 2021-03-16 15:28:[address] [facility] BMI 2021-03-16 15:28:00 16.98 kg/m2 [facility] Systolic blood 2021-02-08 18:14:00 106 mm[Hg] Univer sity [facility] Diastolic blood 2021-02-08 18:14:00 71 mm[facility]Hg[facility] 2021-02-08 18:14:00 87 /min [facility] Body height 2021-02-08 18:14:[address] [facility] Body weight 2021-02-08 18:14:[address] [facility] BMI 2021-02-08 18:14:00 16.98 kg/m2 [facility] Procedures Procedure Date / Time Performing Clinician Source Performed AUTHORIZATION FOR 2022-10-03 06:01:00 Doctor Unassigned, No Univ ersity [facility] RELEASE OF PHI Name [facility] XR WRIST <3 VW RIGHT 2021-03-16 15:23:06 [facility] Encounters Start End Encounter Admission Attending Care Care Encounter Source Date/Time Date/Time Type Type Clinicians Facility Department ID 2022-10-03 2022-10-03 Orders Doctor CEE [id number] Univers 00:00:00 00:00:00 Only Unassigned, RICHIE [id number] ity of [facility] [id number] Dada as [id number] [address] 2021-03-16 2021-03-16 [facility] [id number] Univers 10:23:05 23:59:00 Encounter Clark Zhao [facility] [id number] ity of Surgical [id number] Dada as Specialti [id number] Nm dical es 809 [facility] 2021-03-16 2021-03-16 Office [facility] [id number] Univers 10:16:08 10:31:08 Visit John Godoy [facility] [id number] it y of Surgical [id number] Dada as Specialti [id number] Nm dical es 198 [facility] 2021-03-16 2021-03-16 [facility] [id number] Univers 10:00:00 10:00:00 [facility] 2021-03-15 2021-03-15 [facility] [id number] Univers 14:00:00 14:00:00 [facility] 2021-02-08 2021-02-08 [facility] [id number] Univers 13:28:58 23:59:00 Encounter Clark Zhao [facility] [id number] ity of Surgical [id number] Dada as Specialti [id number] Nm dical es 809 [facility] 2021-02-08 2021-02-08 Office [facility] [id number] Univers 13:08:16 14:00:23 Visit Clark Urena [id number] it y of Surgical [id number] Dada as Specialti [id number] Me dical es 198 [facility] 2021-02-08 2021-02-08 [facility] [id number] Univers 13:30:00 13:30:00 [facility] 2021-02-06 2021-02-06 Outpatient R INGE [facility] [id number] [facility] 15:15:00 15:15:00 [facility] Results Test Description Test Time Test Comments Results Result Sour e Comments XR WRIST <3 VW 2021-03-16 [employer] [facility] RIGHT 15:54:35 fracture of the [facility] distal radius in Branch good alignment there is no volar or dorsal angulation she has signs of callus formation x-ray taken in cast
[2023-08-29 14:54] LABS: Specific Gravity 1.014 (1.005-1.030); Urine Bilirubin NEGATIVE (Negative); Urine Blood Negative (Negative); Urine Clarity Clear (Clear); Urine Color Light-Yellow (Yellow); Urine Glucose NEGATIVE (Negative); Urine Protein NEGATIVE (Negative); Urine Urobilinogen Normal (Normal); Urine pH 6.5 (5.0-7.0)
[2023-08-29 15:02] LABS: Absolute Lymphocytes (CBC) 2.5 K/uL (0.7-4.9); Hematocrit 42.5 % (36.0-45.0); Lymphocytes % 36.2 % (15.3-44.8); MCV 98.5 fL (80-100); MPV 7.1 fL (7.6-11.3); Platelets 299 thou/uL (152-406); RBC Red Blood Cell Count 4.32 M/uL (3.86-4.86)
[2023-08-29 15:19] LABS: Albumin 3.5 g/dL (3.4-5.0); Bilirubin Total 0.3 mg/dL (0.2-1.0); Potassium 3.9 mEq/L (3.5-5.1); Protein, Total 7.1 g/dL (6.4-8.2)
--- NOTE | 2023-08-29 15:30 | RAD REPORT ---
EXAM DESCRIPTION: CT - Abdomen Pelvis Wo Contrast - 08/29/2023 3:14 pm CLINICAL HISTORY: Abdominal pain /LEFT FLANK PAIN COMPARISON: 2021 TECHNIQUE: Computed axial tomography of the abdomen and pelvis was obtained. IV and oral contrast we re not requested. All CT scans are performed using dose optimization technique as appropriate and may include automated exposure control or mA/KV adjustment according to patient size. FINDINGS: The evaluation of solid organs, vessels and bowel is limited secondary to the lack of con trast administration. The liver, spleen, pancreas, adrenals and kidneys appear grossly normal. The appendix is normal. There is no evidence of diverticulitis. A moderate amount of stool within the colon. Small umbilical hernia. Mild chronic compression deformity L1 vertebral body IMPRESSION: Moderate amount of stool within the colon
--- NOTE | 2023-08-29 15:41 | EDPHYS ---
Physician Documentation [facility] Name: Wendi Bonilla Age: 47 yrs Sex: Female : 1975 Arrival Date: 08/29/2023 Time: 14:23 Bed 15 Private MD: ED Physician Casey Armstrong HPI: 08/29 14:34 This 47 yrs old Female presents to ER via Unassigned with complaints of Groin Pain, ms3 Flank Pain. 14:34 47-year-old female with no past medical history presents to the emergency department ms3 for 2 days of left flank pain. Patient states the pain is intermittent lasting for less than 1 second. Patient states the pain is sharp when present. Patient states the pain does radiate to her left groin. Patient denies pain at this time. Patient denies any alleviating or inciting factors. Historical: - Allergies: 14:35 Sulfa (Sulfonamide Antibiotics); nj1 - PMHx: 14:35 None; nj1 - PSHx: 14:35 ankle SX; staph infections surgeries to R ankle; nj1 - Immunization history:: Client reports receiving the 2nd dose of the Covid vaccine. - Social history:: Smoking status: Patient reports the use of cigarette tobacco products, smokes one-half pack cigarettes per day. ROS: 14:34 Constitutional: Negative for fever, and chills. ENT: Negative for injury, pain, and ms3 discharge, Neck: Negative for injury, pain, and swelling, Cardiovascular: Negative for chest pain, and palpitations. Respiratory: Negative for shortness of breath, cough, wheezing, and pleuritic chest pain, 14:34 Abdomen/GI: Negative for abdominal pain, nausea, vomiting, diarrhea, and constipation, 14:34 MS/Extremity: Negative for injury and deformity, Skin: Negative for injury, rash, and discoloration, 14:34 Abdomen/GI: Positive for 14:34 Back: Positive for flank pain, on the left, 14:34 All other systems are negative, Exam: 14:34 Constitutional: This is a well developed, well nourished patient who is awake, alert, ms3 and in no acute distress. Head/Face: Normocephalic, atraumatic. Neck: Trachea midline, no cervical lymphadenopathy. Supple, full range of motion without nuchal rigidity, or vertebral point tenderness. No Meningismus. Chest/axilla: Normal chest wall appearance and motion. Nontender with no deformity. Cardiovascular: Regular rate and rhythm with a normal S1 and S2. No gallops, murmurs, or rubs. Normal PMI, no JVD. No pulse deficits. Respiratory: Lungs have equal breath sounds bilaterally, clear to auscultation and percussion. No rales, rhonchi or wheezes noted. No increased work of breathing, no retractions or nasal flaring. Abdomen/GI: Soft, non-tender, with normal bowel sounds. No distension or tympany. No guarding or rebound. No evidence of tenderness throughout. Skin: Warm, dry with normal turgor. Normal color with no rashes, no lesions, and no evidence of cellulitis. MS/ Extremity: Pulses equal, no cyanosis. Neurovascular intact. Full, normal range of motion. Vital Signs: 14:33 BP 100 / 72; Pulse 77; Resp 16; Temp 98.2(TE); Pulse Ox 98% ; Weight 52.16 kg; Height 5 nj1 ft. 9 in. ; Pain 0/10; 15:47 BP 95 / 68; Pulse 62; Resp 16; Pulse Ox 97% on R/A; db 14:33 Body Mass Index 16.98 (52.16 kg, 175.26 cm) nj1 14:33 Pain Scale: Adult nj1 MDM: 14:33 Patient medically screened. ms3 14:34 Differential diagnosis: nephrolithiasis, pyelonephritis, UTI. ms3 15:36 Data reviewed: vital signs, nurses notes, lab test result(s), radiologic studies, and ms3 as a result, I will discharge patient. Historians other than the Patient: Spouse/Significant Other: . Counseling: I had a detailed discussion with the patient and/or guardian regarding the historical points, exam findings, and any diagnostic results supporting the discharge/admit diagnosis, lab results, radiology results, the need for outpatient follow up, to return to the emergency department if symptoms worsen or persist or if there are any questions or concerns that arise at home. Special discussion: I discussed with the patient/guardian in detail that at this point there is no indication for admission to the hospital. It is understood, however, that if the symptoms persist or worsen the patient needs to return immediately for re-evaluation. ED course: Discussed labs and CT finding of a moderate stool in colon with patient. Patient to follow-up with her primary care physician in 2 to 3 days. Patient understands and agrees with plan. All questions were answered. Return precautions discussed include worsening symptoms, or any other concerns. On reevaluation patient is improved, alert and orient x4, no apparent distress, nontoxic-appearing, ambulatory emergency room, speaking full sentences. 08/29 14:34 Order name: CBC with Diff; Complete Time: 15:40 ms3 08/29 14:34 Order name: CMP; Complete Time: 15:31 ms3 08/29 14:34 Order name: Lipase; Complete Time: 15:31 ms3 08/29 14:34 Order name: Test, Urine; Complete Time: 15:05 ms3 08/29 14:34 Order name: Urinalysis w/ reflexes; Complete Time: 15:05 ms3 08/29 14:34 Order name: CT Abd/Pelvis - Without Contrast; Complete Time: 15:31 ms3 08/29 14:34 Order name: IV Saline Lock; Complete Time: 15:15 ms3 08/29 14:34 Order name: Labs collected and sent; Complete Time: 15:15 ms3 Administered Medications: No medications were administered Disposition Summary: 08/29/23 15:40 Discharge Ordered Notes: Location: Home ms3 Condition: Stable ms3 Diagnosis - Flank pain ms3 Followup: ms3 - With: Clarence Wolfe DO - When: 2 - 3 days - Reason: Recheck today's complaints Discharge Instructions: - Discharge Summary Sheet ms3 - Flank Pain, Adult, [id number] ms3 Forms: - Medication Reconciliation Form ms3 - Thank You Letter ms3 - Antibiotic Education ms3 - Prescription Opioid Use ms3 - Patient Portal Instructions ms3 - Leadership Thank You Letter ms3 Signatures: Dispatcher [employer] EDCasey Mayorga DO DO ms3 Nati Rosado RN RN nj1
--- NOTE | 2023-08-29 15:41 | ER ---
Nurse's Notes [facility] Name: Wendi Bonilla Age: 47 yrs Sex: Female : 1975 Arrival Date: 08/29/2023 Time: : Bed 15 Private MD: Diagnosis: Flank pain Presentation: 08/29 14:33 Chief complaint: Patient states: Intermittent left flank/groin pain for 2 days. "a nj1 little constipated" denies dysuria, nausea, vomiting, diarrhea. Coronavirus screen: Vaccine status: Patient reports receiving the 2nd dose of the covid vaccine. Ebola Screen: Patient denies travel to an Ebola-affected area in the 21 days before illness onset. Risk Assessment: Do you want to hurt yourself or someone else? Patient reports no desire to harm self or others. Onset of symptoms was August 27, 2023. 14:33 Method Of Arrival: Ambulatory [facility] 14:33 Acuity: THERON 3 [facility] 14:33 Initial Sepsis Screen: Does the patient meet any 2 criteria? No. Patient's initial [facility] sepsis screen is negative. Does the patient have a suspected source of infection? No. Patient's initial sepsis screen is negative. Historical: - Allergies: 14:35 Sulfa (Sulfonamide Antibiotics); nj1 - PMHx: 14:35 None; [facility] - PSHx: 14:35 ankle SX; staph infections surgeries to R ankle; nj1 - Immunization history:: Client reports receiving the 2nd dose of the Covid vaccine. - Social history:: Smoking status: Patient reports the use of cigarette tobacco products, smokes one-half pack cigarettes per day. Screenin:16 [facility] [place] ED Fall Risk Assessment (Adult) History of falling in the last 3 months, db including since admission No falls in past 3 months (0 pts) Confusion or Disorientation No (0 pts) Intoxicated or Sedated No (0 pts) Impaired Gait No (0 pts) Mobility Assist Device Used No (0 pt) Altered Elimination No (0 pt) Score/Fall Risk Level 0 - 2 = Low Risk Oriented to surroundings, Maintained a safe environment. Abuse screen: Denies threats or abuse. Denies injuries from another. Nutritional screening: No deficits noted. Tuberculosis screening: No symptoms or risk factors identified. Assessment: 15:16 Reassessment: Patient appears in no apparent distress at this time. Patient and/or db family updated on plan of care and expected duration. Pain level reassessed. Patient is alert, oriented x 3, equal unlabored respirations, skin warm/dry/pink. General: Appears in no apparent distress. comfortable, Behavior is calm, cooperative. Pain: Complains of pain in pelvis. Neuro: Level of Consciousness is awake, alert, obeys commands, Oriented to person, place, time, situation. Respiratory: Airway is patent Respiratory effort is even, unlabored, Respiratory pattern is regular, symmetrical. 15:47 Reassessment: Patient appears in no apparent distress at this time. Patient and/or db family updated on plan of care and expected duration. Pain level reassessed. Patient is alert, oriented x 3, equal unlabored respirations, skin warm/dry/pink. Patient states feeling better. Vital Signs: 14:33 BP 100 / 72; Pulse 77; Resp 16; Temp 98.2(TE); Pulse Ox 98% ; Weight 52.16 kg; Height 5 nj1 ft. 9 in. ; Pain 0/10; 15:47 BP 95 / 68; Pulse 62; Resp 16; Pulse Ox 97% on R/A; db 14:33 Body Mass Index 16.98 (52.16 kg, 175.26 cm) nj1 14:33 Pain Scale: Adult nj1 ED Course: 14:26 Patient arrived in ED. rg4 14:28 Casey Armstrong DO is Attending Physician. ms3 14:35 Triage completed. nj1 14:35 Arm band placed on right wrist. nj1 14:37 Radiology exam delayed due to test not completed at this time. sj 14:43 Imani Casas, RN is Primary Nurse. db 14:45 Test, Urine Sent. em1 14:45 Urinalysis w/ reflexes Sent. em1 15:05 Inserted saline lock: 22 gauge in right forearm, using aseptic technique. Blood db collected. 15:16 CT Abd/Pelvis - Without Contrast In Process Unspecified. EDMS 15:16 Patient has correct armband on for positive identification. Bed in low position. Call db light in reach. Side rails up X 1. Pulse ox on. NIBP on. Warm blanket given. 15:40 Clarence Wolfe DO is Referral Physician. ms3 15:47 Provided Education on: discharge. db 15:47 No provider procedures requiring assistance completed. IV discontinued, intact, db bleeding controlled, No redness/swelling at site. Administered Medications: No medications were administered Medication: 15:47 VIS not applicable for this client. db Outcome: 15:40 Discharge ordered by . ms3 15:47 Discharged to home ambulatory, db 15:47 Condition: stable 15:47 Discharge instructions given to patient, Instructed on discharge instructions, follow up and referral plans. 15:48 Patient left the ED. db Signatures: Dispatcher [employer] EDDesirae Cotton Eric 1 Emelina Holland rg4 Casey Armstrong DO DO ms3 Imani Casas, RN RN db Nati Rosado, CHAYO RN nj1 Corrections: (The following items were deleted from the chart) 14:38 14:33 52.16 kg; Height 5 ft. 9 in.; BMI: 16.9; Pain 0/10, Adult; nj1 nj1
[2023-08-29 15:52] VITALS: TEMP 98.2
[2023-08-29 15:54] VITALS: BP 95/68; O2SAT 97
== END 2023-08-29 15:48 | disposition home or self-care (01) ==
LOC: ER 14:23
DX: R10.32 Left lower quadrant pain (principal)
CPT/HCPCS: 36415; 74176; 80053; 81003; 81025; 83690; 85025; 99284